=== PATIENT | female | born 1960 | race Caucasian/White ===

== ENCOUNTER 2016-07-17 18:41 | Inpatient (IN) ==
[2016-07-17 20:24] LABS: Hematocrit 39.9 % (35.3-44.9); Hemoglobin 13.2 g/dL (11.5-15.4); Mean Corpuscular HGB Conc 33.1 g/dL (31.6-35.5); Mean Corpuscular Hemoglobin 30.1 pg (28.0-33.3); Mean Corpuscular Volume 91.1 fL (83.0-100.0); Mean Platelet Volume 9.8 fL (9.4-12.4); Platelet Count 339 K/mcL (140-400); Red Blood Count 4.38 M/mcL (3.82-4.97); Red Cell Distribution Width 12.8 % (11.5-14.5)
[2016-07-17] MEDS ORDERED: *HR* HYDROmorphone (PF) 1 MG/ML SYRINGE IVP ONE (20:32)
[2016-07-17 20:33] LABS: Alanine Aminotransferase 47 Units/L (0-55); Alkaline Phosphatase 93 Units/L (38-126); Aspartate Amino Transferase 33 Units/L (5-34); BUN/Creatinine Ratio 15 (6-26); Bilirubin,Total 0.4 mg/dL (0.2-1.2); Blood Urea Nitrogen 13 mg/dL (7-20); Calcium 9.5 mg/dL (8.6-10.8); Carbon Dioxide 24 mEq/L (19-29); Chloride 107 mEq/L (98-109); Glucose 110 mg/dL (70-99); Osmolality,Calculated 293 (280-300); Potassium 3.5 mEq/L (3.5-4.5); Sodium 141 mEq/L (136-145); eGFR For African Americans > 60 (> 60); eGFR For Non-African Americans > 60 (> 60)
[2016-07-17] MEDS ORDERED: Ondansetron 4 MG/2 ML VIAL IVP ONE (20:33)
[2016-07-17] MEDS ORDERED: 0.9 % Sodium Chloride 1,000 ML ONE (20:36)
[2016-07-17 20:43] LABS: Lymphocytes # 2.1 K/mcL (0.6-4.6); Monocytes # 1.6 K/mcL (0.0-1.3); Neutrophils # 22.5 K/mcL (1.6-8.9); Platelet Estimate Normal (Normal)
[2016-07-17] MEDS ORDERED: 0.9 % Sodium Chloride 1,000 ML IV ONE (20:44)
[2016-07-17 20:49] LABS: Bilirubin,Urine Negative (Negative); Blood,Urine Negative (Negative); Clarity,Urine Clear (Clear); Color,Urine Yellow (Yellow); Glucose,Urine (UA) Normal (Normal); Ketones,Urine Negative (Negative); Leukocyte Esterase,Urine Negative (Negative); Nitrite,Urine Negative (Negative); Protein,Urine Negative (Neg-Trace); Specific Gravity,Urine 1.017 (1.010-1.025); Urobilinogen,Urine Normal (Normal)
--- NOTE | 2016-07-17 21:50 | Emergency Department Note ---
Disposition Clinical Impression: Diverticulitis Qualifiers: Diverticulitis site: small intestine Diverticulitis bleeding: without bleeding Diverticulitis complication: without perforation or abscess Qualified Code(s): K57.12 - Diverticulitis of small intestine without perforation or abscess without bleeding Disposition: Admitted As Inpatient Condition: Good Referrals: Brenda Rosado HI LIFT OPERATOR [Primary Care Provider] - Forms: Work/School Release, ED Satisfaction Letter Abdominal Pain HPI - General Chief Complaint: ED Abdominal Pain Stated Complaint: abd pain, vomiting Time Seen by Provider: 07/17/16 19:42 Source: patient, family Nursing Notes Reviewed: Yes Vital Signs Reviewed: Yes - History of Present Illness HPI Narrative: Patient comes in complaint of right lower quadrant abdominal pain that started about 3 hours prior to presentation. Patient describes the pain is sudden with no prior history of similar symptoms. Patient states that movement is made the pain worse but wrists does make it better. Patient denies fevers or chills denies numbness and tingling. Patient has had some nausea no vomiting. Patient denies bladder dysfunction associated with this. Patient states she had a gallbladder performed years ago by Dr. henson. Pain Scale: 10 - Related Data Allergies Allergy/AdvReac Type Severity Reaction Status Date / Time Erythromycin Base Allergy Hives Verified 07/17/16 20:02 Tetracyclines Allergy Hives Verified 07/17/16 20:02 All systems ED: reviewed and negative except as stated. Abdominal Pain PMH - Past Medical History Medical history: Reports: asthma Female Surgical History: Reports: cholecystectomy Psychiatric history: Reports: no psych history - Social History Smoking status: Former smoker Alcohol use: Reports: none Drug use: Reports: none Physical Exam - General Limitations: no limitations General appearance: alert, in no apparent distress - Head Head exam: atraumatic, normocephalic, normal inspection - Eye Eye exam: Present: normal appearance, PERRL, EOMI - ENT ENT exam: normal exam, normal oropharynx, mucous membranes moist - Neck Neck exam: Present: normal inspection, full ROM, trachea midline - Chest Chest inspection: Present: normal inspection, symmetric chest wall rise - Respiratory Respiratory exam: Present: normal lung sounds bilaterally - Cardiovascular Cardiovascular exam: Present: regular rate, normal rhythm, normal heart sounds - Abdominal Exam Abdominal exam: Present: soft, tenderness. Absent: guarding, rebound Abdominal tenderness: Present: RLQ - Extremities Exam Extremities exam: Present: normal inspection, full ROM. Absent: tenderness, pedal edema - Back Exam Back exam: Present: normal inspection, full ROM. Absent: tenderness - Neurological Exam Neurological exam: Present: alert, oriented X3 - Psychiatric Psychiatric exam: Present: normal affect, normal mood - Skin Skin exam: Present: warm, dry, intact, normal color Course Vital Signs Temperature 97.8 F 07/17/16 18:44 Pulse Rate 71 07/17/16 18:44 Respiratory Rate 18 07/17/16 18:44 Blood Pressure 143/86 07/17/16 18:44 O2 Sat by Pulse Oximetry 98 07/17/16 18:44 Temperature 97.8 F 07/17/16 18:44 Pulse Rate 71 07/17/16 18:44 Respiratory Rate 18 07/17/16 18:44 Blood Pressure 143/86 07/17/16 18:44 O2 Sat by Pulse Oximetry 98 07/17/16 18:44 Oxygen Delivery Oxygen Delivery Room Air Abdominal Pain - Differential Diagnosis Differential Diagnosis: Likely: abdominal pain non-specific, acute appendicitis , diverticulitis, gastroenteritis, ischemic bowel, pancreatitis - Lab Data Lab results reviewed: Yes I reviewed the patient's lab results. Result diagrams: 07/17/16 20:12 07/17/16 20:12 Lab Results 07/17/16 07/17/16 07/17/16 Range/Units 20:09 20:12 20:12 WBC 26.8 H (4.3-11.1) K/mcL RBC 4.38 (3.82-4.97) M/mcL Hgb 13.2 (11.5-15.4) g/dL Hct 39.9 (35.3-44.9) % MCV 91.1 (83.0-100.0) fL MCH 30.1 (28.0-33.3) pg MCHC 33.1 (31.6-35.5) g/dL RDW 12.8 (11.5-14.5) % Plt Count 339 (140-400) K/mcL MPV 9.8 (9.4-12.4) fL Seg Neutrophils % 32.0 % Band Neutrophils % 52.0 H (0-4) % Lymphocytes % 8.0 % Monocytes % 6.0 % Metamyelocytes % 2.0 H (0) % Neutrophils # 22.5 H (1.6-8.9) K/mcL Lymphocytes # 2.1 (0.6-4.6) K/mcL Monocytes # 1.6 H (0.0-1.3) K/mcL Platelet Estimate Normal (Normal) Sodium 141 (136-145) mEq/L Potassium 3.5 (3.5-4.5) mEq/L Chloride 107 (98-109) mEq/L Carbon Dioxide 24 (19-29) mEq/L BUN 13 (7-20) mg/dL Creatinine 0.84 (0.57-1.11) mg/dL Est GFR ( Amer) > 60 (> 60) Est GFR (Non-Af Amer) > 60 (> 60) BUN/Creatinine Ratio 15 (6-26) Glucose 110 H (70-99) mg/dL Calculated Osmolality 293 (280-300) Lactic Acid (0.5-2.2) mmol/L Calcium 9.5 (8.6-10.8) mg/dL Total Bilirubin 0.4 (0.2-1.2) mg/dL AST 33 (5-34) Units/L ALT 47 (0-55) Units/L Alkaline Phosphatase 93 (38-126) Units/L Serum Total Protein 8.0 (6.0-8.3) g/dL Albumin 4.0 (3.5-5.0) g/dL Globulin 4.0 H (2.4-3.5) g/dL Albumin/Globulin Ratio 1.0 L (1.1-2.2) Urine Color Yellow (Yellow) Urine Clarity Clear (Clear) Urine pH 6.0 (5.0-8.0) pH Units Ur Specific [place] 1.017 (1.010-1.025) Urine Protein Negative (Neg-Trace) mg/dL Urine Glucose (UA) Normal (Normal) mg/dL Urine Ketones Negative (Negative) mg/dL Urine Blood Negative (Negative) Urine Nitrite Negative (Negative) Urine Bilirubin Negative (Negative) Urine Urobilinogen Normal (Normal) mg/dL Ur Leukocyte Esterase Negative (Negative) Ur Culture Indicated? NO (NO) 07/17/16 Range/Units 20:12 WBC (4.3-11.1) K/mcL RBC (3.82-4.97) M/mcL Hgb (11.5-15.4) g/dL Hct (35.3-44.9) % MCV (83.0-100.0) fL MCH (28.0-33.3) pg MCHC (31.6-35.5) g/dL RDW (11.5-14.5) % Plt Count (140-400) K/mcL MPV (9.4-12.4) fL Seg Neutrophils % % Band Neutrophils % (0-4) % Lymphocytes % % Monocytes % % Metamyelocytes % (0) % Neutrophils # (1.6-8.9) K/mcL Lymphocytes # (0.6-4.6) K/mcL Monocytes # (0.0-1.3) K/mcL Platelet Estimate (Normal) Sodium (136-145) mEq/L Potassium (3.5-4.5) mEq/L Chloride (98-109) mEq/L Carbon Dioxide (19-29) mEq/L BUN (7-20) mg/dL Creatinine (0.57-1.11) mg/dL Est GFR ( Amer) (> 60) Est GFR (Non-Af Amer) (> 60) BUN/Creatinine Ratio (6-26) Glucose (70-99) mg/dL Calculated Osmolality (280-300) Lactic Acid 1.0 (0.5-2.2) mmol/L Calcium (8.6-10.8) mg/dL Total Bilirubin (0.2-1.2) mg/dL AST (5-34) Units/L ALT (0-55) Units/L Alkaline Phosphatase (38-126) Units/L Serum Total Protein (6.0-8.3) g/dL Albumin (3.5-5.0) g/dL Globulin (2.4-3.5) g/dL Albumin/Globulin Ratio (1.1-2.2) Urine Color (Yellow) Urine Clarity (Clear) Urine pH (5.0-8.0) pH Units Ur Specific [place] (1.010-1.025) Urine Protein (Neg-Trace) mg/dL Urine Glucose (UA) (Normal) mg/dL Urine Ketones (Negative) mg/dL Urine Blood (Negative) Urine Nitrite (Negative) Urine Bilirubin (Negative) Urine Urobilinogen (Normal) mg/dL Ur Leukocyte Esterase (Negative) Ur Culture Indicated? (NO) - Radiology Data Radiology results reviewed: Yes I reviewed the patient's radiology results. Abdomen/Pelvis CT 07/17/16 20:02 IMPRESSION: 1. Mild colonic diverticulosis with uncomplicated acute diverticulitis involving proximal sigmoid colon. 2. Trace free fluid in the pelvis is likely reactive. D/ / Jason Kirkland MD / Jason Kirkland MD Interpreting Provider: Jason Kirkland MD Critical Care Time Total Critical Care Time: 45 Attestation: Critical care performed: Time is exclusive of separately billable procedures. Time includes: direct patient care, patient reassessment, coordination of patient care, interpretation of data (laboratory data, radiology data, and respiratory data), review of patient's medical records, medical consultation and documentation of patient care. Procedures included in critical care time: Procedures excluded from critical care time:
[2016-07-17] MEDS ORDERED: MetroNIDAZOLE 500 MG/100 ML 500 MG/100 ML BAG IVPB ONE (22:06)
[2016-07-17] MEDS ORDERED: Naloxone 0.4 MG/ML INJ IVP PRN (23:57)
[2016-07-18] MEDS ORDERED: *HR* HYDROmorphone (PF) 1 MG/ML SYRINGE IVP PRN (00:01)
[2016-07-18] MEDS ORDERED: *HR* HYDROmorphone (PF) 1 MG/ML SYRINGE IVP ONE (00:01)
[2016-07-18] MEDS ORDERED: *HR* Morphine 2 MG/ML SYRINGE IVP PRN (00:01)
--- NOTE | 2016-07-18 00:04 | Internal Med History&Physical ---
Date of Encounter: 07/17/16 Time of Encounter: 23:30 Assessment and Plan (1) Sigmoid diverticulitis Current visit: Yes Status: Acute CT scan of the abdomen and pelvis showing acute diverticulitis involving the proximal sigmoid colon. Please keep her nothing by mouth. Treat with ertapenem (due to severe leucocytosis). Monitor for complications, and consider surgical consultation, if any concern for complications. (2) Leucocytosis Current visit: Yes Status: Acute Secondary to acute diverticulitis. Monitor WBC count Qualifiers: Leukocytosis type: bandemia Qualified Code(s): D72.825 - Bandemia (3) DVT prophylaxis Current visit: Yes Status: Acute Subcutis heparin Internal Medicine - H&P: HPI Chief complaint: Abdominal pain Admitted From: Emergency Dept Plans for Post Hospital Care: Home History of present illness: Ms. Crenshaw is a 56 year old female prior history of cholecystectomy about 10 years ago. The interventricular emergency department visit sudden onset of right lower quadrant/suprapubic abdominal pain started at about 4 PM today. Pain was severe, worse with movement, had some relief with Pain medications given in the emergency department, nonradiating. No associated nausea, vomiting , fever, chills. She had no similar episodes in the past. He had bowel movement earlier today, with no hematochezia/melena. She denies constipation or diarrhea. Denies dysuria or hematuria. She denies chest pain, shortness of breath, cough or expectoration. She was evaluated in the emergency department and abdominal imaging suggestive of uncomplicated proximal sigmoid diverticulitis and leukocytosis. He was given intravenous ciprofloxacin and metronidazole. She is admitted to the hospitalist service for further workup and management. Past Med Surg Social Fam HX - Past Medical History Medical history: asthma Psychiatric history: no psych history - Past Surgical History Surgical History: cholecystectomy - Social History Smoking Status: Former smoker Packs per day: 1.5 Smokeless Tobacco Status: No Alcohol use: none Drug use: none Internal Medicine - H&P: Meds Allergies Erythromycin Base Allergy (Verified 07/17/16 20:02) Hives Tetracyclines Allergy (Verified 07/17/16 20:02) Hives All Systems PM: A 10-system review of systems was performed and is negative for pertinent findings except as documented above in the HPI. - Constitutional Vitals: Temp Pulse Resp BP Pulse Ox 97.8 F 71 18 143/86 98 07/17/16 18:44 07/17/16 18:44 07/17/16 18:44 07/17/16 18:44 07/17/16 18:44 Exam: General: Mild acute distress at the time of my evaluation HEENT: Oral mucosa is dry. No conjunctival palor or scleral icterus Neck: No obvious neck swellings Lungs: Clear to auscultation Cardiac: Regular rate and rhythm. No significant murmurs Abdomen: Mild right lower quadrant / suprapubic tenderness present. Bowel sounds present Genitourinary: No gutierrez catheter Neurological: Alert and oriented. No gross localizing deficits Psych: Not aggressive or agitated Extremities: no significant leg edema Skin: No generalized rash Internal Med - H&P Results - Labs CBC & Chem 7: 07/17/16 20:12 07/17/16 20:12 - Impressions ITS Impressions Abdomen/Pelvis CT 07/17/16 20:02 IMPRESSION: 1. Mild colonic diverticulosis with uncomplicated acute diverticulitis involving proximal sigmoid colon. 2. Trace free fluid in the pelvis is likely reactive. D/ / Jason Kirkland MD / Jason Kirkland MD Interpreting Provider: Jason Kirkland MD
[2016-07-18] MEDS: 0.9 % Sodium Chloride 1,000 ML IVC SCH ×3 (00:28→21:40)
[2016-07-18] MEDS: Ertapenem 1,000 MG in 0.9 % Sodium Chloride Mini Bag 100 ML IVPB SCH (05:34)
[2016-07-18 05:47] LABS: Basophils % 0.1 %; Hematocrit 35.8 % (35.3-44.9); Immature Granulocytes % 0.6 % (0-4); Lymphocytes # 1.4 K/mcL (0.6-4.6); Lymphocytes % 6.4 %; Mean Corpuscular HGB Conc 32.4 g/dL (31.6-35.5); Mean Corpuscular Hemoglobin 29.1 pg (28.0-33.3); Mean Corpuscular Volume 89.7 fL (83.0-100.0); Mean Platelet Volume 9.6 fL (9.4-12.4); Monocytes # 0.9 K/mcL (0.0-1.3); Neutrophils # 18.8 K/mcL (1.6-8.9); Platelet Count 273 K/mcL (140-400); Red Blood Count 3.99 M/mcL (3.82-4.97); Red Cell Distribution Width 12.9 % (11.5-14.5); Segmented Neutrophils % 88.9 %
[2016-07-18 05:50] LABS: Hemoglobin 11.6 g/dL (11.5-15.4)
[2016-07-18 06:02] LABS: BUN/Creatinine Ratio 14 (6-26); Blood Urea Nitrogen 11 mg/dL (7-20); C-Reactive Protein 35 mg/L (Less than 5); Calcium 8.9 mg/dL (8.6-10.8); Carbon Dioxide 24 mEq/L (19-29); Chloride 108 mEq/L (98-109); Glucose 118 mg/dL (70-99); Magnesium 1.9 mg/dL (1.6-2.6); Osmolality,Calculated 290 (280-300); Potassium 3.9 mEq/L (3.5-4.5); Sodium 140 mEq/L (136-145); eGFR For African Americans > 60 (> 60); eGFR For Non-African Americans > 60 (> 60)
[2016-07-18] MEDS: *HR* Heparin 5,000 UNIT/ML VIAL SQ SCH ×3 (06:52→23:48)
[2016-07-18] MEDS ORDERED: MetroNIDAZOLE 500 MG/100 ML 500 MG/100 ML BAG IVPB SCH (08:00)
[2016-07-18] MEDS: Lactobacillus 1 EACH CAP.SPRINK PO SCH (09:10)
[2016-07-18] MEDS: Ondansetron 4 MG/2 ML VIAL IVP PRN (10:07)
[2016-07-18] MEDS: *HR* OxyCODONE Immed Rel 5 MG TABLET PO PRN (12:26)
--- NOTE | 2016-07-18 15:24 | Electrocardiograph Report ---
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
[2016-07-18] MEDS: *HR* HYDROmorphone (PF) 1 MG/ML SYRINGE IVP PRN ×2 (16:49→23:48)
[2016-07-18] MEDS: Acetaminophen 325 MG TABLET PO PRN (19:36)
--- NOTE | 2016-07-18 20:01 | Event Note ---
Date of Encounter: 07/18/16 Time of Encounter: 08:30 patinet seen at the bedside, admitted for acute sigmoid diverticulitis. still complaining of abdominal pain, denies nausea or vomiting denies guy or blood in stool Ct abd showed sigmmoid diverticulitis, no evidence of abscess. will start ice chips , increase pain meds as pain is not well controlled keep IVF for now, gradually advance diet as tolerated. will continue IV antibiotics, currently on ertapenem. monitor for worsening abdominal pain. abdominal exam has no rebound tenderness but is diffusely tender.
[2016-07-19] MEDS: *HR* OxyCODONE Immed Rel 5 MG TABLET PO PRN ×3 (04:18→22:05)
[2016-07-19 05:24] LABS: Basophils % 0.1 %; Eosinophils % 0.1 %; Hematocrit 32.7 % (35.3-44.9); Hemoglobin 10.6 g/dL (11.5-15.4); Immature Granulocytes % 0.8 % (0-4); Lymphocytes # 1.4 K/mcL (0.6-4.6); Lymphocytes % 6.9 %; Mean Corpuscular HGB Conc 32.4 g/dL (31.6-35.5); Mean Corpuscular Hemoglobin 29.9 pg (28.0-33.3); Mean Corpuscular Volume 92.1 fL (83.0-100.0); Monocytes # 0.8 K/mcL (0.0-1.3); Monocytes % 4.2 %; Neutrophils # 17.5 K/mcL (1.6-8.9); Platelet Count 214 K/mcL (140-400); Red Blood Count 3.55 M/mcL (3.82-4.97); Red Cell Distribution Width 12.9 % (11.5-14.5); Segmented Neutrophils % 87.9 %
[2016-07-19 05:39] LABS: BUN/Creatinine Ratio 20 (6-26); Blood Urea Nitrogen 14 mg/dL (7-20); Calcium 8.6 mg/dL (8.6-10.8); Carbon Dioxide 23 mEq/L (19-29); Chloride 108 mEq/L (98-109); Glucose 100 mg/dL (70-99); Osmolality,Calculated 287 (280-300); Potassium 3.9 mEq/L (3.5-4.5); Sodium 138 mEq/L (136-145); eGFR For African Americans > 60 (> 60); eGFR For Non-African Americans > 60 (> 60)
[2016-07-19] MEDS: *HR* Heparin 5,000 UNIT/ML VIAL SQ SCH ×3 (07:38→22:05)
[2016-07-19] MEDS: 0.9 % Sodium Chloride 1,000 ML IVC SCH ×2 (07:39→18:51)
[2016-07-19] MEDS: Lactobacillus 1 EACH CAP.SPRINK PO SCH (09:19)
[2016-07-19] MEDS: Ertapenem 1,000 MG in 0.9 % Sodium Chloride Mini Bag 100 ML IVPB SCH (09:20)
[2016-07-19] MEDS: Ondansetron 4 MG/2 ML VIAL IVP PRN ×2 (10:31→22:38)
--- NOTE | 2016-07-19 14:14 | Internal Med Progress Note ---
Date of Encounter: 07/19/16 Time of Encounter: 14:12 - Assessment and plan (1) Sigmoid diverticulitis Current Visit: Yes Status: Acute Assessment and plan: continue IV ertapenem, CT abd showed sigmoid diverticulitis, no evidence of abscess follow blood culture results. clinically better, pain has subsided, leucocytosis has improved, will gradually advance diet. will need colonosocpy as OP once the inflammation has resolved. (2) DVT prophylaxis Current Visit: Yes Status: Acute - Time Spent With Patient 25 - 35 minutes - Subjective Interval history: patinet admitted for acute diverticulitis, seen at the bedside reports improvement in pain, s/p bowel movement with no blood. vomited once in the morning, diet was advanced to clear liquids today. - Constitutional Vitals: Temp Pulse Resp BP Pulse Ox 99 F 92 16 118/71 93 L 07/19/16 11:31 07/19/16 11:31 07/19/16 11:31 07/19/16 11:31 07/19/16 11:31 General appearance: Present: mild distress, A&O X 3 Exam: HEENT: Oral mucosa is dry. No conjunctival palor or scleral icterus Neck: No obvious neck swellings Lungs: Clear to auscultation Cardiac: Regular rate and rhythm. No significant murmurs Abdomen: Mild right lower quadrant present. Bowel sounds present Genitourinary: No gutierrez catheter Neurological: Alert and oriented. No gross localizing deficits Psych: Not aggressive or agitated Extremities: no significant leg edema Skin: No generalized rash Internal Medicine: Result - Labs CBC & Chem 7: 07/19/16 04:54 07/19/16 04:54 Labs: Short CBC 07/19/16 Range/Units 04:54 WBC 19.9 H (4.3-11.1) K/mcL Hgb 10.6 L (11.5-15.4) g/dL Hct 32.7 L (35.3-44.9) % Plt Count 214 (140-400) K/mcL Neutrophils # 17.5 H (1.6-8.9) K/mcL BMP 07/19/16 04:54 Sodium 138 Potassium 3.9 Chloride 108 Carbon Dioxide 23 BUN 14 Creatinine 0.69 Glucose 100 H Calcium 8.6 Consult Discharge Plan - Plan Referrals: Brenda Rosado, MARKETING ADMINISTRATOR [Primary Care Provider] -
[2016-07-19] MEDS: *HR* HYDROmorphone (PF) 1 MG/ML SYRINGE IVP PRN (15:10)
[2016-07-19] MEDS: Acetaminophen 325 MG TABLET PO PRN (16:05)
[2016-07-20] MEDS: Ondansetron 4 MG/2 ML VIAL IVP PRN ×4 (03:13→22:59)
[2016-07-20] MEDS: *HR* HYDROmorphone (PF) 1 MG/ML SYRINGE IVP PRN ×2 (03:13→08:36)
[2016-07-20] MEDS: *HR* Heparin 5,000 UNIT/ML VIAL SQ SCH ×3 (06:31→19:16)
[2016-07-20] MEDS: *HR* OxyCODONE Immed Rel 5 MG TABLET PO PRN ×2 (06:35→15:36)
[2016-07-20] MEDS: 0.9 % Sodium Chloride 1,000 ML IVC SCH ×3 (07:47→23:06)
[2016-07-20] MEDS: Lactobacillus 1 EACH CAP.SPRINK PO SCH (08:37)
[2016-07-20] MEDS: Ertapenem 1,000 MG in 0.9 % Sodium Chloride Mini Bag 100 ML IVPB SCH (08:46)
[2016-07-20] MEDS ORDERED: *HR* Promethazine 25 MG/ML VIAL IVP PRN ×2 (10:51→16:10)
[2016-07-20 11:35] LABS: Basophils % 0.1 %; Eosinophils % 0.2 %; Hematocrit 31.4 % (35.3-44.9); Hemoglobin 10.3 g/dL (11.5-15.4); Lymphocytes # 1.1 K/mcL (0.6-4.6); Lymphocytes % 7.7 %; Mean Corpuscular HGB Conc 32.8 g/dL (31.6-35.5); Mean Corpuscular Hemoglobin 29.3 pg (28.0-33.3); Mean Corpuscular Volume 89.5 fL (83.0-100.0); Mean Platelet Volume 9.5 fL (9.4-12.4); Monocytes # 0.7 K/mcL (0.0-1.3); Monocytes % 4.5 %; Neutrophils # 12.6 K/mcL (1.6-8.9); Platelet Count 214 K/mcL (140-400); Red Blood Count 3.51 M/mcL (3.82-4.97); Red Cell Distribution Width 12.7 % (11.5-14.5); Segmented Neutrophils % 86.5 %
[2016-07-20 11:50] LABS: Alanine Aminotransferase 35 Units/L (0-55); Albumin/Globulin Ratio 0.6 (1.1-2.2); Alkaline Phosphatase 82 Units/L (38-126); Aspartate Amino Transferase 32 Units/L (5-34); BUN/Creatinine Ratio 17 (6-26); Blood Urea Nitrogen 10 mg/dL (7-20); Calcium 8.2 mg/dL (8.6-10.8); Carbon Dioxide 23 mEq/L (19-29); Chloride 107 mEq/L (98-109); Globulin 3.9 g/dL (2.4-3.5); Glucose 103 mg/dL (70-99); Osmolality,Calculated 285 (280-300); Potassium 3.4 mEq/L (3.5-4.5); Sodium 138 mEq/L (136-145); Total Protein 6.4 g/dL (6.0-8.3); eGFR For African Americans > 60 (> 60); eGFR For Non-African Americans > 60 (> 60)
[2016-07-20 11:51] LABS: Albumin 2.5 g/dL (3.5-5.0); Bilirubin,Total 0.8 mg/dL (0.2-1.2)
[2016-07-20 13:38] LABS: INR 1.2; Prothrombin Time 13.2 Seconds (9.4-12.1)
--- NOTE | 2016-07-20 15:40 | Internal Med Progress Note ---
Date of Encounter: 07/20/16 Time of Encounter: 15:36 - Assessment and plan (1) Sigmoid diverticulitis Current Visit: Yes Status: Acute Assessment and plan: repeat ct this morning for persistent vomiting. NPO, IVF, consulted surgery. CT shows perforation and ascitis. continue IV ertapenem, IV zofran and phenergan follow blood culture results, leucocytosis seems to have improved. will follow surgical recommendations. (2) DVT prophylaxis Current Visit: Yes Status: Acute - Time Spent With Patient 25 - 35 minutes - Subjective Interval history: isabela admitted for acute diverticulitis, seen at the bedside noted to be vomiting this morning, had nothing to eat. reports she feels miserable. - Constitutional Vitals: Temp Pulse Resp BP Pulse Ox 99.7 F H 86 16 128/76 96 07/20/16 15:17 07/20/16 15:17 07/20/16 15:17 07/20/16 15:17 07/20/16 15:17 General appearance: Present: mild distress, A&O X 3 Exam: Neck: No obvious neck swellings Lungs: Clear to auscultation Cardiac: Regular rate and rhythm. No significant murmurs Abdomen:feels soft, tenderness lower abdomen , bs are present, Genitourinary: No gutierrez catheter Neurological: Alert and oriented. No gross localizing deficits Psych: Not aggressive or agitated Extremities: no significant leg edema Skin: No generalized rash Internal Medicine: Result - Labs CBC & Chem 7: 07/20/16 11:13 07/20/16 11:13 Labs: Short CBC 07/20/16 Range/Units 11:13 WBC 14.6 H (4.3-11.1) K/mcL Hgb 10.3 L (11.5-15.4) g/dL Hct 31.4 L (35.3-44.9) % Plt Count 214 (140-400) K/mcL Neutrophils # 12.6 H (1.6-8.9) K/mcL BMP 07/20/16 11:13 Sodium 138 Potassium 3.4 L Chloride 107 Carbon Dioxide 23 BUN 10 Creatinine 0.58 Glucose 103 H Calcium 8.2 L Liver Function 07/20/16 Range/Units 11:13 Total Bilirubin 0.8 D (0.2-1.2) mg/dL AST 32 (5-34) Units/L ALT 35 (0-55) Units/L Alkaline Phosphatase 82 (38-126) Units/L Albumin 2.5 L D (3.5-5.0) g/dL - ABG Interpretation ABG results: PT/INR, D-dimer PT 13.2 Seconds (9.4-12.1) H 07/20/16 13:23 - Impressions Impressions Abdomen/Pelvis CT 07/20/16 11:01 IMPRESSION: 1. Interval progression of acute sigmoid diverticulitis now with perforation with new small volume ascites and a 4.8 x 3.1 cm pericolonic gas and fluid collection. 2. There is a 3.3 cm pocket of fluid in the right pelvis which could represent a second fluid collection versus a fluid-filled bowel loop. 3. Hepatic steatosis. 4. Mild dilation of the common bile duct likely related to post cholecystectomy changes. 5. Although the bladder is decompressed, there is apparent bladder wall thickening and perivesicular stranding which could be reactive due to adjacent inflammatory changes within the sigmoid colon. Cystitis is not excluded. Critical results were called by Dr. Janiya Yanez MD to Bhupendra Tierney on 07/20/2016 at 12:17. D/ / 07/20/2016 12:22:59 Janiya Yanez MD / kaylee Interpreting Provider: Janiya Yanez MD Consult Discharge Plan - Plan Referrals: Brenda Rosado, TRIAGE LICENSED PRACTICAL NURSE [Primary Care Provider] - 07/29/16 10:40 am
[2016-07-20] MEDS: Acetaminophen 325 MG TABLET PO PRN (16:10)
[2016-07-20] MEDS ORDERED: Potassium Chloride 20 MEQ, Lidocaine 1% 2 ML in D5% in Water 250 ML IVPB ONE (16:13)
[2016-07-20] MEDS: Piperacillin/Tazobactam 3.375 GM in D5% in Water (Mini-Bag+) 100 ML IVPB SCH ×2 (16:28→23:07)
--- NOTE | 2016-07-20 16:50 | General Surgery Consult Note ---
Date of Encounter: 07/20/16 Time of Encounter: 16:00 History of Present Illness Reason for consult: abdominal pain (Acute diverticulitis with perforation) Requesting physician: Bhupendra Tierney History of present illness: 56-year-old obese female admitted to [facility], 07/17/16, after presenting to urgency department with sudden onset right-sided abdominal pain. On presentation the patient complained of acute pain but no associated nausea, vomiting, fevers or chills. Patient had a markedly elevated white count , 26.8, other labs and urinalysis were within normal limits. CT findings included: A few linear opacities near both lung bases representing scarring or subsegmental atelectasis; evidence of previous cholecystectomy; 2.9 cm simple appearing cyst interpolar region right kidney; normal liver, spleen, adrenals and left kidney; normal-appearing appendix; tiny fat-containing umbilical hernia ; colonic diverticulosis with acute sigmoid diverticulitis company by a few foci of extraluminal gas present. The interpreting radiologist felt that these extra luminal gas bubbles were likely within the mesenteric veins rather than intraperitoneal. The possibility of a microperforation due to the acute sigmoid diverticulitis was considered. Patient was admitted, started on IV ertapenem with moderate improvement over overnight. EP white count improved to 21.9, 07/18/16 and subsequently 19.9 on 07/19/16. Clear liquids were allowed minimal intake resulting in severe, recurrent emesis. Today, the patient was complaining of persistent Right side abdominal pain prompting a repeat CT. This showed interval progression of the acute sigmoid diverticulitis with perforation evidenced by extracolonic gas and fluid. Both CTs were reviewed personally with [facility]. The initial findings of mesenteric venous air was not corroborated. In retrospect, the exta luminal air was due to sigmoid diverticulitis with perforation. Past medical history: Mitral valve prolapse without regurgitation, asthma Allergies: Erythromycin, tetracycline Medications: Topamax when necessary for migraines Zyrtec [id number] when necessary for allergies Multivitamin by mouth daily Social history: G3, P2; denies any alcohol or illicit drug use; quit smoking 6 weeks ago admitting to 1-1/2 packs per day for 30+ years Physical examination: Obese, age-appropriate female resting comfortably in her hospital bed. During my encounter with the patient, she experienced an episode of "dry heaves " Skin was warm, moist without obvious jaundice Temperature 99.7; pulse 86, respirations 16, blood pressure 128/76, SPO2 on room air 93-96% Lungs: Clear bilaterally though breath sounds were diminished in both bases Cardiac: Regular rate, no appreciable murmurs. Was not able to detect a click consistent with mitral valve prolapse Abdomen: Obese, tenderness most pronounced in the right lower quadrant but also tender in the left lower quadrant. No discernible masses. Hypoactive bowel sounds Extremities: No obvious clubbing cyanosis or edema Laboratories: White count today 14.6; hemoglobin 10.3, hematocrit 31.4; platelet count 214,000. PT/INR 13.2/1.2 respectively Electrolytes - potassium 3.4; otherwise normal electrolytes, BUN, creatinine LFTs - normal bili, AST, ALT and alkaline phosphatase Impression: 56 yo obese female with acute sigmoid divertilculitis with perforation. The perforation appears contained at present. Treatment options include urgent surgery - sigmoid colectomy with high probability of end colostomy as an anastomosis in the presence of acute inflammation/infection is likely to fail. Alternatively, we can continue to treat aggressively with ATB, changing the Ertepenem to Zosyn and metronidazole and monitor the patient closely for signs and symptoms of improvement. If the acute inflammation is controlled medically, a primary resection with anastomosis may become possible in several days. The patient expressed understanding and is willing to defer surgery and trial of medical management. I will follow this patient with you. To achieve these ends the patient will be strictly NPO; pain medications will be decreased in dosage but offered more frequently. Anti emetics, both Zofran and phenergan, will be available for control of nausea and/ or vomiting. The patient's hypokalemia will be addressed with IV potassium. The possibility of prolonged NPO status may necessitate establishing a central line and initiation TPN. Past Med Surg Social Fam HX - Past Medical History Medical history: asthma Psychiatric history: no psych history - Past Surgical History Surgical History: cholecystectomy - Social History Smoking Status: Former smoker Packs per day: 1.5 Smokeless Tobacco Status: No Alcohol use: none Drug use: none Medications and Allergies Cetirizine HCl [Zyrtec] 10 mg PO DAILY 07/18/16 [History] Gabapentin [Neurontin] 300 mg PO HS 07/18/16 [History] Mv-Mn/FA/Vit K/Lycop/Lut/Coq10 [Daily Multivitamin Capsule] 1 each PO DAILY [History] Ranitidine HCl [Acid Refrigerating Machine Operator] 75 mg PO DAILY 07/18/16 [History] Topiramate [Topiramate] 50 mg PO HS 07/18/16 [History] Allergies Erythromycin Base Allergy (Verified 07/18/16 10:08) Hives Tetracyclines Allergy (Verified 07/18/16 10:08) Hives Review of Systems All systems PM: A 10-system review of systems was performed and is negative for pertinent findings except as documented above in the HPI. General Surgery Exam Initial Vital Signs Temp Pulse Resp BP Pulse Ox 97.8 F 71 18 143/86 98 07/17/16 18:44 07/17/16 18:44 07/17/16 18:44 07/17/16 18:44 07/17/16 18:44 Exam Initial Vital Signs Temp Pulse Resp BP Pulse Ox 97.8 F 71 18 143/86 98 07/17/16 18:44 07/17/16 18:44 07/17/16 18:44 07/17/16 18:44 07/17/16 18:44 Results - Labs 07/20/16 11:13 07/20/16 11:13 Abnormal lab results WBC 14.6 K/mcL (4.3-11.1) H 07/20/16 11:13 RBC 3.51 M/mcL (3.82-4.97) L 07/20/16 11:13 Hgb 10.3 g/dL (11.5-15.4) L 07/20/16 11:13 Hct 31.4 % (35.3-44.9) L 07/20/16 11:13 Band Neutrophils % 52.0 % (0-4) H 07/17/16 20:12 Metamyelocytes % 2.0 % (0) H 07/17/16 20:12 Neutrophils # 12.6 K/mcL (1.6-8.9) H 07/20/16 11:13 PT 13.2 Seconds (9.4-12.1) H 07/20/16 13:23 Potassium 3.4 mEq/L (3.5-4.5) L 07/20/16 11:13 Glucose 103 mg/dL (70-99) H 07/20/16 11:13 POC Glucose 98 (58-89) H 07/19/16 00:13 Calcium 8.2 mg/dL (8.6-10.8) L 07/20/16 11:13 C-Reactive Protein 35 mg/L (Less than 5) H 07/18/16 04:55 Albumin 2.5 g/dL (3.5-5.0) L D 07/20/16 11:13 Globulin 3.9 g/dL (2.4-3.5) H 07/20/16 11:13 Albumin/Globulin Ratio 0.6 (1.1-2.2) L 07/20/16 11:13 Diabetes panel 07/20/16 Range/Units 11:13 Sodium 138 (136-145) mEq/L Potassium 3.4 L (3.5-4.5) mEq/L Chloride 107 (98-109) mEq/L Carbon Dioxide 23 (19-29) mEq/L BUN 10 (7-20) mg/dL Creatinine 0.58 (0.57-1.11) mg/dL Glucose 103 H (70-99) mg/dL Calcium 8.2 L (8.6-10.8) mg/dL AST 32 (5-34) Units/L ALT 35 (0-55) Units/L Alkaline Phosphatase 82 (38-126) Units/L Albumin 2.5 L D (3.5-5.0) g/dL Calcium panel 07/20/16 Range/Units 11:13 Calcium 8.2 L (8.6-10.8) mg/dL Albumin 2.5 L D (3.5-5.0) g/dL Pituitary panel 07/20/16 Range/Units 11:13 Sodium 138 (136-145) mEq/L Potassium 3.4 L (3.5-4.5) mEq/L Chloride 107 (98-109) mEq/L Carbon Dioxide 23 (19-29) mEq/L BUN 10 (7-20) mg/dL Creatinine 0.58 (0.57-1.11) mg/dL Glucose 103 H (70-99) mg/dL Calcium 8.2 L (8.6-10.8) mg/dL Adrenal panel 07/20/16 Range/Units 11:13 Sodium 138 (136-145) mEq/L Potassium 3.4 L (3.5-4.5) mEq/L Chloride 107 (98-109) mEq/L Carbon Dioxide 23 (19-29) mEq/L BUN 10 (7-20) mg/dL Creatinine 0.58 (0.57-1.11) mg/dL Glucose 103 H (70-99) mg/dL Calcium 8.2 L (8.6-10.8) mg/dL Total Bilirubin 0.8 D (0.2-1.2) mg/dL AST 32 (5-34) Units/L ALT 35 (0-55) Units/L Alkaline Phosphatase 82 (38-126) Units/L Albumin 2.5 L D (3.5-5.0) g/dL All other labs normal. Consult Discharge Plan - Plan Referrals: Brenda Rosado CNP [Primary Care Provider] - 07/29/16 10:40 am
[2016-07-20] MEDS: Acetaminophen IV 1,000 MG/100 ML INFUS..BTL IVPB SCH ×2 (18:45→23:15)
[2016-07-20] MEDS: MetroNIDAZOLE 500 MG/100 ML 500 MG/100 ML BAG IVPB SCH ×2 (19:05→23:06)
[2016-07-20] MEDS: Albuterol 2.5 MG/3 ML NEBULIZER IH SCH (22:01)
[2016-07-21] MEDS ORDERED: Albuterol 2.5 MG/3 ML NEBULIZER ONE (04:16)
[2016-07-21] MEDS: Albuterol 2.5 MG/3 ML NEBULIZER IH SCH ×2 (04:17→10:27)
[2016-07-21] MEDS: Acetaminophen IV 1,000 MG/100 ML INFUS..BTL IVPB SCH (04:47)
[2016-07-21] MEDS: Ondansetron 4 MG/2 ML VIAL IVP PRN ×4 (04:54→22:50)
[2016-07-21] MEDS: *HR* HYDROmorphone (PF) 1 MG/ML SYRINGE IVP PRN ×5 (04:54→22:43)
[2016-07-21] MEDS: MetroNIDAZOLE 500 MG/100 ML 500 MG/100 ML BAG IVPB SCH ×4 (05:23→23:06)
[2016-07-21] MEDS: *HR* Heparin 5,000 UNIT/ML VIAL SQ SCH ×3 (05:31→18:57)
[2016-07-21 06:07] LABS: Basophils % 0.2 %; Eosinophils % 0.3 %; Hematocrit 29.6 % (35.3-44.9); Hemoglobin 9.8 g/dL (11.5-15.4); Immature Granulocytes % 0.8 % (0-4); Lymphocytes # 1.1 K/mcL (0.6-4.6); Lymphocytes % 12.2 %; Mean Corpuscular HGB Conc 33.1 g/dL (31.6-35.5); Mean Corpuscular Hemoglobin 29.6 pg (28.0-33.3); Mean Corpuscular Volume 89.4 fL (83.0-100.0); Mean Platelet Volume 9.6 fL (9.4-12.4); Monocytes # 0.5 K/mcL (0.0-1.3); Monocytes % 5.4 %; Neutrophils # 7.6 K/mcL (1.6-8.9); Platelet Count 237 K/mcL (140-400); Red Blood Count 3.31 M/mcL (3.82-4.97); Red Cell Distribution Width 12.7 % (11.5-14.5); Segmented Neutrophils % 81.1 %
[2016-07-21 06:20] LABS: BUN/Creatinine Ratio 13 (6-26); Blood Urea Nitrogen 7 mg/dL (7-20); Calcium 8.4 mg/dL (8.6-10.8); Carbon Dioxide 22 mEq/L (19-29); Chloride 108 mEq/L (98-109); Glucose 102 mg/dL (70-99); Osmolality,Calculated 288 (280-300); Potassium 3.1 mEq/L (3.5-4.5); Sodium 140 mEq/L (136-145); eGFR For African Americans > 60 (> 60); eGFR For Non-African Americans > 60 (> 60)
[2016-07-21] MEDS: Piperacillin/Tazobactam 3.375 GM in D5% in Water (Mini-Bag+) 100 ML IVPB SCH ×3 (09:31→23:07)
[2016-07-21] MEDS: 0.9 % Sodium Chloride 1,000 ML IVC SCH (09:33)
[2016-07-21] MEDS: Potassium Chloride 40 MEQ, Lidocaine 1% 2 ML in D5% in Water 500 ML IVPB SCH ×2 (09:35→15:10)
[2016-07-21] MEDS ORDERED: Acetaminophen IV 1,000 MG/100 ML INFUS..BTL IVPB PRN (10:56)
[2016-07-21] MEDS ORDERED: Albuterol 2.5 MG/3 ML NEBULIZER IH PRN (10:56)
--- NOTE | 2016-07-21 12:02 | General Surgery Progress Note ---
Date of Encounter: 07/21/16 Time of Encounter: 11:47 Subjective Patient reports: still having pain, vomiting Narrative: General Surgery: patient still c/o feeling poorly. Persistent abdominal pain as expected which patient describes as "the same as yesterday" Still vomiting Afebrile, 98.4, pulse 85, respirations 16, blood pressure 136/68. Lungs: Clear Abdomen: Obese, less tender right lower quadrant; persistent tenderness left lower quadrant. Active bowel sounds. Moderate loose bowel movement described in the last 24 hours Urine output 1300 mL for calendar day 07/20/16; 100 mL so far today Laboratories: White count 9.3 - much improved; hemoglobin 9.8, hematocrit 29.6 - the diminished values reflective of hydration Platelet count 237,000. Electrolytes notable for potassium of 3.1; other electrolytes, BUN, creatinine stable. Prealbumin 8 Impression: Acute sigmoid diverticulitis with perforation; improved to my exam though patient still complaining of feeling poorly Leukocytosis associated with acute sigmoid diverticulitis resolved Hypokalemia - due to nausea and vomiting; will continue to supplement via IV potassium Diminished albumin consistent with with protein calorie malnutrition. TPN and central line discussed with patient but will be deferred for now. Discussed with Nutrition/Dietary. Satisfactory response to ATB therapy. Continue to monitor. Objective Vital Signs - Last 8 Hours Temp Pulse Resp BP Pulse Ox 07/21/16 10:56 98.4 F 85 16 136/68 93 L 07/21/16 10:29 18 93 L 07/21/16 07:42 93 L 07/21/16 05:52 98.3 F 81 16 122/68 93 L 07/21/16 04:17 16 93 L Intake and Output 07/20/16 07/21/16 07/21/16 23:59 07:59 15:59 Intake Total 1400 / 1400 400 / 400 1000 / 1000 Output Total 1000 / 1000 300 / 300 500 / 500 Balance 400 / 400 100 / 100 500 / 500 Intake: IV Fluids 1400 / 1400 400 / 400 1000 / 1000 0.9 % Sodium Chloride 1, 1000 / 1000 1000 / 1000 000 ML @ 100 mls/hr IVC . Q10H [facility] Rx#:[id number] Ofirmev 1,000 mg In 100 200 / 200 100 / 100 ml @ 400 mls/hr IVPB Q6H [facility] Rx#:[id number] Flagyl 500 MG/100 ML 500 100 / 100 200 / 200 mg In 100 ml @ 100 mls/hr IVPB Q6H [facility] Rx#: [id number] Zosyn 3.375 GM In 100 / 100 100 / 100 Dextrose 5% (Minibag+) 100 ML 100 ML @ 25 mls/hr IVPB Q8HR [facility] Rx#: [id number] Oral 0 / 0 0 / 0 Output: Urine 1000 / 1000 300 / 300 400 / 400 Emesis 100 / 100 Other: Meal NPO NPO BREAKFAST NPO Percent of Meal Consumed 0% Stool Size Moderate Stool Consistency loose # Bowel Movements 1 Weight 106.821 kg Blood Glucose* 88 101 123 Patient Weight 07/21/16 23:59 Weight 106.821 kg - Labs 07/21/16 05:57 07/21/16 05:57 Diabetes panel 07/20/16 07/21/16 Range/Units 11:13 05:57 Sodium 138 140 (136-145) mEq/L Potassium 3.4 L 3.1 L (3.5-4.5) mEq/L Chloride 107 108 (98-109) mEq/L Carbon Dioxide 23 22 (19-29) mEq/L BUN 10 7 (7-20) mg/dL Creatinine 0.58 0.55 L (0.57-1.11) mg/dL Glucose 103 H 102 H (70-99) mg/dL Calcium 8.2 L 8.4 L (8.6-10.8) mg/dL AST 32 (5-34) Units/L ALT 35 (0-55) Units/L Alkaline Phosphatase 82 (38-126) Units/L Albumin 2.5 L D (3.5-5.0) g/dL Calcium panel 07/20/16 07/21/16 Range/Units 11:13 05:57 Calcium 8.2 L 8.4 L (8.6-10.8) mg/dL Albumin 2.5 L D (3.5-5.0) g/dL Pituitary panel 07/20/16 07/21/16 Range/Units 11:13 05:57 Sodium 138 140 (136-145) mEq/L Potassium 3.4 L 3.1 L (3.5-4.5) mEq/L Chloride 107 108 (98-109) mEq/L Carbon Dioxide 23 22 (19-29) mEq/L BUN 10 7 (7-20) mg/dL Creatinine 0.58 0.55 L (0.57-1.11) mg/dL Glucose 103 H 102 H (70-99) mg/dL Calcium 8.2 L 8.4 L (8.6-10.8) mg/dL Adrenal panel 07/20/16 07/21/16 Range/Units 11:13 05:57 Sodium 138 140 (136-145) mEq/L Potassium 3.4 L 3.1 L (3.5-4.5) mEq/L Chloride 107 108 (98-109) mEq/L Carbon Dioxide 23 22 (19-29) mEq/L BUN 10 7 (7-20) mg/dL Creatinine 0.58 0.55 L (0.57-1.11) mg/dL Glucose 103 H 102 H (70-99) mg/dL Calcium 8.2 L 8.4 L (8.6-10.8) mg/dL Total Bilirubin 0.8 D (0.2-1.2) mg/dL AST 32 (5-34) Units/L ALT 35 (0-55) Units/L Alkaline Phosphatase 82 (38-126) Units/L Albumin 2.5 L D (3.5-5.0) g/dL Consult Discharge Plan - Plan Referrals: Brenda Rosado CNP [Primary Care Provider] - 07/29/16 10:40 am
[2016-07-21] MEDS: D5% in 0.9% NACL 1,000 ML IVC SCH (15:09)
--- NOTE | 2016-07-21 16:28 | Internal Med Progress Note ---
Date of Encounter: 07/21/16 Time of Encounter: 16:22 - Assessment and plan (1) Sigmoid diverticulitis Current Visit: Yes Status: Acute Assessment and plan: repeat ct yesterday showed perforation from sigmoid diverticulitis. NPO, IVF, surgery is following. clinically improved with conservative management. CT shows perforation and ascitis. antibiotics has been changed by surgery, IV zofran and phenergan follow blood culture results, leucocytosis seems to have improved. will follow surgical recommendations. to anticipate TPN and central line placement if to remain NPO for a long time this was discussed with the patient and she does not want the central line at this time. will continue to follow. (2) DVT prophylaxis Current Visit: Yes Status: Acute - Time Spent With Patient 25 - 35 minutes - Subjective Interval history: patinet admitted for acute diverticulitis, seen at the bedside complicated by diverticular perforation. being followed by surgery, appreciate recommendations. - Constitutional Vitals: Temp Pulse Resp BP Pulse Ox 98.4 F 85 18 146/79 97 07/21/16 15:38 07/21/16 15:38 07/21/16 15:38 07/21/16 15:38 07/21/16 15:38 General appearance: Present: A&O X 3, no acute distress Exam: Neck: No obvious neck swellings Lungs: Clear to auscultation Cardiac: Regular rate and rhythm. No significant murmurs Abdomen:feels soft, mild tenderness lower abdomen , bs are present, no rebound Genitourinary: No gutierrez catheter Neurological: Alert and oriented. No gross localizing deficits Psych: Not aggressive or agitated Extremities: no significant leg edema Skin: No generalized rash Internal Medicine: Result - Labs CBC & Chem 7: 07/21/16 05:57 07/21/16 05:57 Labs: Short CBC 07/21/16 Range/Units 05:57 WBC 9.3 (4.3-11.1) K/mcL Hgb 9.8 L (11.5-15.4) g/dL Hct 29.6 L (35.3-44.9) % Plt Count 237 (140-400) K/mcL Neutrophils # 7.6 (1.6-8.9) K/mcL BMP 07/21/16 05:57 Sodium 140 Potassium 3.1 L Chloride 108 Carbon Dioxide 22 BUN 7 Creatinine 0.55 L Glucose 102 H Calcium 8.4 L - ABG Interpretation ABG results: PT/INR, D-dimer PT 13.2 Seconds (9.4-12.1) H 07/20/16 13:23 - Impressions Impressions Abdomen/Pelvis CT 07/20/16 11:01 IMPRESSION: 1. Interval progression of acute sigmoid diverticulitis with perforation and new small volume ascites and a 4.8 x 3.1 cm pericolonic gas and fluid collection. 2. There is a 3.3 cm pocket of fluid in the right pelvis which could represent a second fluid collection versus a fluid-filled bowel loop. 3. Hepatic steatosis. 4. Mild dilation of the common bile duct likely related to post cholecystectomy changes. 5. Although the bladder is decompressed, there is apparent bladder wall thickening and perivesicular stranding which could be reactive due to adjacent inflammatory changes within the sigmoid colon. Cystitis is not excluded. Critical results were called by Dr. Janiya Yanez MD to [facility] on 07/20/2016 at 12:17. D/ / 07/20/2016 12:22:59 Janiya Yanez MD / kaylee Interpreting Provider: Janiya Yanez MD Consult Discharge Plan - Plan Referrals: Brenda Rosado CNP [Primary Care Provider] - 07/29/16 10:40 am
[2016-07-22] MEDS: *HR* HYDROmorphone (PF) 1 MG/ML SYRINGE IVP PRN ×7 (02:46→23:42)
[2016-07-22] MEDS: Ondansetron 4 MG/2 ML VIAL IVP PRN ×2 (02:54→17:48)
[2016-07-22] MEDS: MetroNIDAZOLE 500 MG/100 ML 500 MG/100 ML BAG IVPB SCH ×4 (05:14→23:46)
[2016-07-22] MEDS: *HR* Heparin 5,000 UNIT/ML VIAL SQ SCH ×2 (05:15→09:39)
[2016-07-22 07:14] LABS: Basophils % 0.3 %; Eosinophils % 0.2 %; Hematocrit 30.8 % (35.3-44.9); Hemoglobin 10.3 g/dL (11.5-15.4); Immature Granulocytes % 0.6 % (0-4); Lymphocytes # 1.2 K/mcL (0.6-4.6); Lymphocytes % 11.2 %; Mean Corpuscular HGB Conc 33.4 g/dL (31.6-35.5); Mean Corpuscular Hemoglobin 29.7 pg (28.0-33.3); Mean Corpuscular Volume 88.8 fL (83.0-100.0); Mean Platelet Volume 10.1 fL (9.4-12.4); Monocytes # 0.6 K/mcL (0.0-1.3); Monocytes % 5.9 %; Neutrophils # 8.7 K/mcL (1.6-8.9); Platelet Count 320 K/mcL (140-400); Red Blood Count 3.47 M/mcL (3.82-4.97); Red Cell Distribution Width 12.7 % (11.5-14.5); Segmented Neutrophils % 81.8 %
[2016-07-22 07:32] LABS: BUN/Creatinine Ratio 5 (6-26); Calcium 7.9 mg/dL (8.6-10.8); Carbon Dioxide 24 mEq/L (19-29); Chloride 106 mEq/L (98-109); Glucose 108 mg/dL (70-99); Osmolality,Calculated 285 (280-300); Potassium 3.2 mEq/L (3.5-4.5); Sodium 139 mEq/L (136-145); eGFR For African Americans > 60 (> 60); eGFR For Non-African Americans > 60 (> 60)
[2016-07-22 07:46] LABS: Blood Urea Nitrogen 3 mg/dL (7-20)
[2016-07-22] MEDS: Piperacillin/Tazobactam 3.375 GM in D5% in Water (Mini-Bag+) 100 ML IVPB SCH ×3 (09:37→23:46)
[2016-07-22] MEDS: D5% in 0.9% NACL 1,000 ML IVC SCH ×2 (09:41→21:19)
[2016-07-22] MEDS: Potassium Chloride 40 MEQ, Lidocaine 1% 2 ML in D5% in Water 500 ML IVPB SCH ×2 (11:11→16:07)
[2016-07-22] MEDS: *HR* Promethazine 25 MG/ML VIAL IVP PRN ×3 (11:13→20:07)
[2016-07-22] MEDS ORDERED: D10% in Water 500 ML IV PRN (12:31)
--- NOTE | 2016-07-22 12:45 | General Surgery Progress Note ---
Date of Encounter: 07/22/16 Time of Encounter: 12:30 Subjective Patient reports: still having pain, pain is less, vomiting Narrative: General Surgery: patient feeling better but continues to vomit. Pain persists but has diminished and is now more centally located - caudal to the umbilicus Afebrile, 97.8; pulse 75, respirations 16, blood pressure 150/86; SPO2 on room air 96% Lungs: Clear to auscultation Abdomen: Soft, tender more centrally than before. Patient continues to vomit despite being NPO. Urine output 2550 mL in the last 24 hours; 1600 mL so far today Laboratories: White count 10.7, hemoglobin 10.3 with hematocrit 3 0.8; platelet count 320,000. Sodium 139, potassium 3.2, chloride 106, carbon dioxide 24, BUN 3, creatinine 0.56 Impression: Acute sigmoid diverticulitis with perforation. Persistent emesis, with resultant hypokalemia The persistent emesis is a concern. Patient has been on ATB since admission, 07/18/2016. Will schedule sigmoid colectomy for AM. The patient is aware of the potential for an end colostomy. Other risks of surgery include hemorrhage, infection, intra abdominal abscess, injury to adjacent structures such as adjacent small and large bowel, ureters and bladder, uterus and ovaries. Central venous line will also be established to provide prolonged IV access as well as TPN. Risks of CVL include hemorrhage, infection malposition of the catheter and pneumothorax. Will hold heparin in preparation for surgery Will continue IV supplementation potassium to correct hypokalemia. Patient expressed understanding and has consented to surgery. Objective Vital Signs - Last 8 Hours Temp Pulse Resp BP Pulse Ox 07/22/16 11:00 97.8 F 75 16 150/86 96 07/22/16 07:18 98.0 F 71 16 127/71 95 Intake and Output 07/21/16 07/22/16 07/22/16 23:59 07:59 15:59 Intake Total 200 / 200 1200 / 1200 100 / 100 Output Total 1250 / 1250 1300 / 1300 300 / 300 Balance -1050 / -1050 -100 / -100 -200 / -200 Intake: IV Fluids 200 / 200 1200 / 1200 100 / 100 D5% And 0.9% Nacl 1000 Ml 1000 / 1000 1,000 ML @ 60 mls/hr IVC .[id number] [facility] Rx#: [id number] Flagyl 500 MG/100 ML 500 100 / 100 100 / 100 100 / 100 mg In 100 ml @ 100 mls/hr IVPB Q6H [facility] Rx#: [id number] Zosyn 3.375 GM In 100 / 100 100 / 100 Dextrose 5% (Minibag+) 100 ML 100 ML @ 25 mls/hr IVPB Q8HR [facility] Rx#: [id number] Oral 0 / 0 0 / 0 0 / 0 Output: Urine 1250 / 1250 1300 / 1300 300 / 300 Other: Meal NPO Percent of Meal Consumed 0% Stool Size Moderate Stool Consistency loose Stool Characteristics Normal for Patient Stool Color Brown # Bowel Movements 1 Weight 107.048 kg Blood Glucose* 103 114 108 Patient Weight 07/22/16 23:59 Weight 107.048 kg - Labs 07/22/16 05:52 07/22/16 05:52 Diabetes panel 07/22/16 Range/Units 05:52 Sodium 139 (136-145) mEq/L Potassium 3.2 L (3.5-4.5) mEq/L Chloride 106 (98-109) mEq/L Carbon Dioxide 24 (19-29) mEq/L BUN 3 L (7-20) mg/dL Creatinine 0.56 L (0.57-1.11) mg/dL Glucose 108 H (70-99) mg/dL Calcium 7.9 L (8.6-10.8) mg/dL Calcium panel 07/22/16 Range/Units 05:52 Calcium 7.9 L (8.6-10.8) mg/dL Pituitary panel 07/22/16 Range/Units 05:52 Sodium 139 (136-145) mEq/L Potassium 3.2 L (3.5-4.5) mEq/L Chloride 106 (98-109) mEq/L Carbon Dioxide 24 (19-29) mEq/L BUN 3 L (7-20) mg/dL Creatinine 0.56 L (0.57-1.11) mg/dL Glucose 108 H (70-99) mg/dL Calcium 7.9 L (8.6-10.8) mg/dL Adrenal panel 07/22/16 Range/Units 05:52 Sodium 139 (136-145) mEq/L Potassium 3.2 L (3.5-4.5) mEq/L Chloride 106 (98-109) mEq/L Carbon Dioxide 24 (19-29) mEq/L BUN 3 L (7-20) mg/dL Creatinine 0.56 L (0.57-1.11) mg/dL Glucose 108 H (70-99) mg/dL Calcium 7.9 L (8.6-10.8) mg/dL Consult Discharge Plan - Plan Referrals: Brenda Rosado CNP [Primary Care Provider] - 07/29/16 10:40 am
--- NOTE | 2016-07-22 16:10 | Internal Med Progress Note ---
Date of Encounter: 07/22/16 Time of Encounter: 16:08 - Assessment and plan (1) Sigmoid diverticulitis Current Visit: Yes Status: Acute Assessment and plan: being tretaed for perforated sigmoid diverticulitis. NPO, IVF, surgery is following. initially some imporvemne with clinical tx however has episodes of vomiting this morning. antibiotics continued along with zofran and phenergan Blood culture preliminary shows no growth, leucocytosis seems to have improved. will follow surgical recommendations. Plan for surgery tomorrow morning,central line for TPN to be placed at surgery. will continue to follow. (2) DVT prophylaxis Current Visit: Yes Status: Acute - Time Spent With Patient 25 - 35 minutes - Subjective Interval history: patinet admitted for acute diverticulitis, seen at the bedside had multiple episodes of vomiting this morning. complicated by diverticular perforation. being followed by surgery, planned for surgery tomm am. - Constitutional Vitals: Temp Pulse Resp BP Pulse Ox 97.6 F 76 16 137/81 98 07/22/16 15:05 07/22/16 15:05 07/22/16 15:05 07/22/16 15:05 07/22/16 15:05 General appearance: Present: A&O X 3, no acute distress Exam: Neck: No obvious neck swellings Lungs: Clear to auscultation Cardiac: Regular rate and rhythm. No significant murmurs Abdomen:feels soft, mild tenderness lower abdomen , bs are present, no rebound Genitourinary: No gutierrez catheter Neurological: Alert and oriented. No gross localizing deficits Psych: Not aggressive or agitated Extremities: no significant leg edema Skin: No generalized rash Internal Medicine: Result - Labs CBC & Chem 7: 07/22/16 05:52 07/22/16 14:51 Labs: Short CBC 07/22/16 Range/Units 05:52 WBC 10.7 (4.3-11.1) K/mcL Hgb 10.3 L (11.5-15.4) g/dL Hct 30.8 L (35.3-44.9) % Plt Count 320 (140-400) K/mcL Neutrophils # 8.7 (1.6-8.9) K/mcL BMP 07/22/16 07/22/16 05:52 14:51 Sodium 139 Potassium 3.2 L 3.6 Chloride 106 Carbon Dioxide 24 BUN 3 L Creatinine 0.56 L Glucose 108 H Calcium 7.9 L - ABG Interpretation ABG results: PT/INR, D-dimer PT 13.2 Seconds (9.4-12.1) H 07/20/16 13:23 Consult Discharge Plan - Plan Referrals: Brenda Rosado CNP [Primary Care Provider] - 07/29/16 10:40 am
[2016-07-23 04:29] LABS: Basophils # 0.1 K/mcL (0.0-0.2); Basophils % 0.5 %; Eosinophils # 0.1 K/mcL (0.0-0.6); Eosinophils % 0.8 %; Hematocrit 35.9 % (35.3-44.9); Hemoglobin 11.8 g/dL (11.5-15.4); Immature Granulocytes % 0.8 % (0-4); Lymphocytes # 2.3 K/mcL (0.6-4.6); Lymphocytes % 21.8 %; Mean Corpuscular HGB Conc 32.9 g/dL (31.6-35.5); Mean Corpuscular Hemoglobin 29.5 pg (28.0-33.3); Mean Corpuscular Volume 89.8 fL (83.0-100.0); Mean Platelet Volume 9.3 fL (9.4-12.4); Monocytes # 0.8 K/mcL (0.0-1.3); Neutrophils # 7.4 K/mcL (1.6-8.9); Platelet Count 392 K/mcL (140-400); Red Cell Distribution Width 12.9 % (11.5-14.5); Segmented Neutrophils % 69.1 %
[2016-07-23 04:39] LABS: Magnesium 1.5 mg/dL (1.6-2.6); Phosphorous 3.2 mg/dL (2.3-4.7)
[2016-07-23] MEDS: Ondansetron 4 MG/2 ML VIAL IVP PRN ×4 (04:44→23:28)
[2016-07-23 04:46] LABS: Alanine Aminotransferase 38 Units/L (0-55); Albumin 2.6 g/dL (3.5-5.0); Albumin/Globulin Ratio 0.6 (1.1-2.2); Alkaline Phosphatase 107 Units/L (38-126); Aspartate Amino Transferase 37 Units/L (5-34); BUN/Creatinine Ratio 4 (6-26); Bilirubin,Total 0.5 mg/dL (0.2-1.2); Calcium 8.8 mg/dL (8.6-10.8); Carbon Dioxide 28 mEq/L (19-29); Chloride 104 mEq/L (98-109); Globulin 4.4 g/dL (2.4-3.5); Glucose 99 mg/dL (70-99); Osmolality,Calculated 287 (280-300); Potassium 3.8 mEq/L (3.5-4.5); Sodium 140 mEq/L (136-145); eGFR For African Americans > 60 (> 60); eGFR For Non-African Americans > 60 (> 60)
[2016-07-23] MEDS: *HR* HYDROmorphone (PF) 1 MG/ML SYRINGE IVP PRN ×8 (04:47→23:33)
[2016-07-23 04:50] LABS: Blood Urea Nitrogen 3 mg/dL (7-20)
[2016-07-23] MEDS: MetroNIDAZOLE 500 MG/100 ML 500 MG/100 ML BAG IVPB SCH ×4 (04:50→23:31)
--- NOTE | 2016-07-23 07:24 | Anesthesia Evaluation PreOp ---
Date of Encounter: 07/23/16 Time of Encounter: 07:22 - Past History Planned Operation: Sigmoid colectomy Cardiac History: Other (MVP withoutRegurg.) Pulmonary History: Former smoker, Pack/yr (1.5 ppd x 30 years, quit smoking 6 years ago), Asthma COATER ASSOCIATE History: Denies Any Significant HX Other Medical History: Denies Any Significant HX Anesthesia History: No Prior Anesthetic Complications, Past Anesthesia (GB) : No Alcohol Use: none Drug use: none Medications and Allergies Cetirizine HCl [Zyrtec] 10 mg PO DAILY 07/18/16 [History] Gabapentin [Neurontin] 300 mg PO HS 07/18/16 [History] Mv-Mn/FA/Vit K/Lycop/Lut/Coq10 [Daily Multivitamin Capsule] 1 each PO DAILY [History] Ranitidine HCl [Acid Residential Glazier] 75 mg PO DAILY 07/18/16 [History] Topiramate [Topiramate] 50 mg PO HS 07/18/16 [History] Allergies Erythromycin Base Allergy (Verified 07/18/16 10:08) Hives Tetracyclines Allergy (Verified 07/18/16 10:08) Hives - Meds/Allergy Pre-op Review Medications Reviewed: Yes Allergies Reviewed: Yes Beta Blockers on Current Med List: No Anesthesia Results - Labs 07/23/16 04:08 07/23/16 04:08 - Imaging EKG: image reviewed (SR) Anesthesia Exam O2 Sat Weight 107.3 kg O2 Sat by Pulse Oximetry 94 O2 Sat by Pulse Oximetry 95 O2 Sat by Pulse Oximetry 97 O2 Sat by Pulse Oximetry 98 O2 Sat by Pulse Oximetry 96 Vital Signs Temp Pulse Resp BP Pulse Ox 97.8 F 71 18 143/86 98 07/17/16 18:44 07/17/16 18:44 07/17/16 18:44 07/17/16 18:44 07/17/16 18:44 Vital Signs/O2 Sat, Most Current Temp Pulse Resp BP Pulse Ox 98.8 F 83 16 127/72 94 L 07/23/16 03:58 07/23/16 03:58 07/23/16 03:58 07/23/16 03:58 07/23/16 03:58 Height: 5'5'' Weight: 236# NPO (# of Hours): > 8 hrs Pain Scale: 0 Pain Scale Used: Numeric (1 - 10) - HEENT Pupil (Motor): Pupils equal, EOMI Mallampati: III Teeth: Normal Oral Opening: Greater than 3 - COATER ASSOCIATE LOC: Oriented COATER ASSOCIATE Motor: Normal RUE, Normal LUE, Normal RLE, Normal LLE, Normal Face COATER ASSOCIATE Sensory: Normal: RUE, LUE, RLE, LLE, Face - Cardiac Rhythm: Regular Murmur: None JVD: No Carotid Bruit: No - Pulmonary Breath Sounds: bilateral Clear Respiratory Effort: Symmetrical Anesthesia Assess/Plan ASA Score: 2 Modified Karla Scale for Level of Consciousness: Cooperative, oriented, and tranquil Anesthetic Plan: General Autologous Blood: Yes Monitoring Plan: Standard Monitors Recovery Plan: PACU
[2016-07-23] MEDS ORDERED: *HR* HYDROmorphone (PF) 1 MG/ML SYRINGE IVP PRN (07:29)
[2016-07-23] MEDS ORDERED: *HR* Promethazine 25 MG/ML VIAL IVP PRN (07:29)
[2016-07-23] MEDS ORDERED: *HR* Labetalol 100 MG/20 ML MDV IVP PRN (07:29)
[2016-07-23] MEDS ORDERED: Albuterol 2.5 MG/3 ML NEBULIZER IH ONE (07:29)
[2016-07-23] MEDS ORDERED: *HR* FentaNYL (PF) 100 MCG/2 ML VIAL ONE (07:35)
[2016-07-23] MEDS ORDERED: *HR* Midazolam HCl 2 MG/2 ML VIAL ONE (07:35)
[2016-07-23] MEDS ORDERED: *HR* Propofol 200 MG/20 ML VIAL IVP ONE (07:35)
[2016-07-23] MEDS ORDERED: Lidocaine -MPF 2% 2 ML VIAL ONE (07:37)
[2016-07-23] MEDS ORDERED: Dexamethasone 4 MG/ML VIAL ONE (07:37)
[2016-07-23] MEDS ORDERED: Ondansetron 4 MG/2 ML VIAL ONE (07:37)
[2016-07-23] MEDS ORDERED: *HR* Rocuronium Bromide 50 MG/5 ML VIAL ONE (07:37)
[2016-07-23] MEDS ORDERED: *HR* Succinylcholine 200 MG/10 ML VIAL IVP ONE (07:37)
[2016-07-23] MEDS ORDERED: Ringers Solution, Lactated 1,000 ML IVC SCH (07:45)
[2016-07-23] MEDS: Piperacillin/Tazobactam 3.375 GM in D5% in Water (Mini-Bag+) 100 ML IVPB SCH ×3 (08:10→23:38)
[2016-07-23] MEDS ORDERED: *HR* HYDROmorphone 2 MG/ML SYRINGE ONE (08:56)
[2016-07-23] MEDS ORDERED: Neostigmine Methylsulfate 3 MG/3 ML SYRINGE ONE (11:32)
--- NOTE | 2016-07-23 12:36 | Operative Note ---
Date of procedure: 07/23/16 Pre-op diagnosis: Acute sigmoid diverticulitis with perforation, pericolic abscess Post-op diagnosis: same Procedure: Exploratory celiotomy, sigmoid colectomy with incidental appendectomy; stapled EEA colocolonic anastomosis; intraoperative rigid sigmoidoscopy; placement of central venous line via left subclavian vein Complications: None apparent Anesthesia: LIAM Surgeon: Santiago Rodrigues Estimated blood loss (cc): 500 IV fluids (cc): 2,500 Specimen: sigmoid colon, anastomotic rings, appendix Condition: stable Disposition: PACU Procedure in Detail: The patient was brought to the operating room where she was placed supine upon the operating room table. Patient was appropriately identified as to person and procedure. The accuracy of this information was confirmed by the procedure team. The patient was intubated and anesthetized under the supervision of Dr. Audie Barker. Once the airway was secured, an OG tube was passed, a Resendez catheter was established, and the patient was placed in low lithotomy using yellowfin stirrups. The perineum was prepped with Betadine and the abdomen was prepped with chlorhexidine. Sterile drapes were applied in the usual sterile fashion. A midline incision was made from just above the umbilicus to the symphysis pubis. The incision was carried through the subcutaneous tissue. Bleeding points were controlled with Bovie electrocautery. The fascia was divided in the midline along the linea alba allowing atraumatic entry into the abdominal cavity. Exposure was facilitated with a self-retaining Omni tract retractor. Examination of the peritoneal cavity demonstrated a normal- appearing liver with no obvious lesions, stomach and spleen were unremarkable with appropriate positioning of the orogastric tube within the lumen of the stomach. The small bowel was examined from the ligament of Treitz to the ileocecal valve. A normal-appearing appendix was evident. This was grasped with a Jung clamp, the mesoappendix was divided at the junction of the appendix with the cecum allowing placement of an Ethicon TX 60 mm stapler (blue cartridge) to divide the appendix at its junction with the cecum. The mesoappendix was then divided with the aid of a CovDoubleVerify Ligasure Impact dissector. The appendix was removed from the operative field. Descending and transverse colon was grossly normal as was the descending colon. Acute inflammatory changes were evident involving the sigmoid colon consistent with the clinical diagnosis. Sigmoid colon was adherent to several loops of small bowel as well as the lateral and anterior peritoneal wall. The uterus appeared to be grossly normal. The bilateral tubes and ovaries demonstrated some inflammatory changes related to the adjacent sigmoid diverticulitis with pericolic abscess. As the sigmoid was mobilized on the surrounding structures, the abscess cavity was entered. Fluid was evacuated with the suction device. The sigmoid colon was mobilized by incising the lateral peritoneal reflection along the white line of Toldt. A point on the descending colon was selected, the mesentery divided, followed by division of the descending colon using the Ethicon TX 60 mm stapler (blue cartridge). A bowel clamp was applied to the colon distal to the staple line and the bowel was divided. The mesentery of the sigmoid colon was dissected with the aid of the Ligasure dissector. The left colic vessels were identified, suture ligated with 2-0 silk, and divided. The dissection proceeded into the pelvis to approximately the rectosigmoid junction. The bowel was divided using the Ethicon TX 60 mm stapler(blue cartridge). The sigmoid colon was removed from the surgical field. A pursestring device was applied to the distal descending colon and the previous staple line excised. The bowel measured 29 mm using an EEA sound. This allowed me to select a 29 mm ECS EEA stapler to complete the colocolonic anastomosis. The anvil was placed in the distal descending colon, the pursestring was secured. It was necessary to dissect along the descending colon proximal to the splenic flexure to facilitate sufficient mobilization to allow a tension-free anastomosis to be completed. Once this was completed, the surgeon proceeded to the perineum. The EEA sound was inserted rectally to the staple line. The distance to the staple line from the anal verge was approximately 10 centimeters. The EEA stapler was then inserted, the spike passed through the staple line, and the stapled EEA anastomosis completed. After extracting the stapler, 2 intact anastomotic rings were encountered. The proximal anastomotic ring was tagged with a suture to differentiate it from the distal anastomotic ring. An intraoperative rigid sigmoidoscopy was completed. The staple line was visually intact and insufflation of the colon and no air leak (string of bubbles) was identified in the saline filled pelvis. The surgeon was regowned and gloved. The pelvis was copiously irrigated with warm sterile saline which was evacuated with the suction device. Hemostasis appeared to be adequate. Closure was then initiated in layers. The peritoneum was closed with a running interlocking 0 Vicryl. The fascia was reapproximated with interrupted [id number] 0 Vicryl. The subcutaneous tissue was reapproximated with 3-0 Vicryl and the skin edges reapproximated with rochelle. A dry sterile dressing was applied. The surgery was again regowned and gloved in preparation for placement of a central venous line via the left subclavian vein. The left anterior chest and shoulder was prepped with chlorhexidine whole -body drape was used. The patient was placed in Trendelenburg. Using an 18- gauge needle, the left subclavian vein was located. At no time was air aspirated. In the technique described by Rick, a guidewire was inserted, the needle was extracted. The skin tract was incised and dilated. A 16 cm 3 lumen 7 Syriac Arrow-olivia catheter was passed over the guidewire to 15 cm. The guidewire was removed. The catheter was secured to the infraclavicular skin at 15 cm with 3-0 silk. The 3 ports aspirated easily for blood were flushed with saline. A Biopatch was applied followed by an OpSite dressing. The patient was taken to PACU in stable condition. Needle, sponge, and instrument counts were correct at the close of the case. A stat portable chest x-ray is pending and will be reviewed on completion.
[2016-07-23] MEDS ORDERED: 0.9 % Sodium Chloride 1,000 ML IVC SCH (13:00)
--- NOTE | 2016-07-23 13:05 | Anesthesia Evaluation Post Op ---
Date of Encounter: 07/23/16 Time of Encounter: 13:04 - Vital Signs Vital Signs: Vital Signs/O2 Sat, Most Current Temp Pulse Resp BP Pulse Ox 98.4 F 85 16 148/85 97 07/23/16 13:02 07/23/16 13:02 07/23/16 13:02 07/23/16 13:02 07/23/16 13:02 - Lungs Lungs: Clear Ascult./Percussion - Airway Airway: Non-obstructed - Cardiovascular Regular Rate - Mental Status Mental Status: Alert & Oriented, Answers Appropriately - Pain Pain Scale: 0 Pain Scale used: Numeric (1 - 10) - Nausea Vomiting Nausea Vomiting: Not Present - Hydration Hydration: NPO, Resendez catheter - Discharge PostOp Status: Transfer Patient to floor
[2016-07-23] MEDS ORDERED: Naloxone 0.4 MG/ML INJ IVP PRN (13:33)
[2016-07-23] MEDS ORDERED: Dextrose Gel 15 GM PO PRN (13:33)
[2016-07-23] MEDS ORDERED: Acetaminophen IV 1,000 MG/100 ML INFUS..BTL IVPB PRN (13:33)
[2016-07-23] MEDS ORDERED: Magnesium Sulfate 2 GM in D5% in Water 100 ML IVPB ONE (13:33)
[2016-07-23] MEDS ORDERED: Albuterol 2.5 MG/3 ML NEBULIZER IH PRN (13:33)
[2016-07-23] MEDS ORDERED: D5% in Water 1,000 ML IV PRN (13:33)
[2016-07-23] MEDS ORDERED: D10% in Water 500 ML IV PRN (13:33)
[2016-07-23] MEDS: 0.9 % Sodium Chloride 1,000 ML IVC SCH (14:47)
--- NOTE | 2016-07-23 15:33 | Event Note ---
Date of Encounter: 07/23/16 Time of Encounter: 15:31 patinet planned for exp laparotomy today with DR. henson seen at the bedside, post op. c/o pain abdomen s/p exploratory celiotomy, sigmoid colectomy and incidental appendectomy with placement of the central venous line. vitals stable. to be started on TPN> will continue the dilaudid q1hr 0.5 mg prn and IV antibiotics. post op care as per surgery will follow recommendations , to remain NPO.
[2016-07-23] MEDS: Insulin LISPRO 300 UNITS/3 ML VIAL SQ SCH ×3 (16:12→21:00)
[2016-07-23] MEDS: Pantoprazole 40 MG VIAL IVP SCH (16:17)
[2016-07-23] MEDS ORDERED: Clinimix E 5%-15% SOLUTION 2,000 ML with MVI, adult with vitamin K 10 ML IV SCH ×2 (17:00)
[2016-07-24] MEDS: Insulin LISPRO 300 UNITS/3 ML VIAL SQ SCH ×6 (00:16→21:39)
[2016-07-24] MEDS: *HR* HYDROmorphone (PF) 1 MG/ML SYRINGE IVP PRN ×3 (02:30→08:26)
[2016-07-24] MEDS: *HR* Promethazine 25 MG/ML VIAL IVP PRN (03:34)
[2016-07-24 03:36] LABS: Basophils % 0.3 %; Eosinophils # 0.1 K/mcL (0.0-0.6); Eosinophils % 0.6 %; Hematocrit 35.7 % (35.3-44.9); Hemoglobin 11.1 g/dL (11.5-15.4); Immature Granulocytes % 1.1 % (0-4); Lymphocytes # 2.2 K/mcL (0.6-4.6); Lymphocytes % 18.9 %; Mean Corpuscular HGB Conc 31.1 g/dL (31.6-35.5); Mean Corpuscular Hemoglobin 28.8 pg (28.0-33.3); Mean Corpuscular Volume 92.7 fL (83.0-100.0); Mean Platelet Volume 9.1 fL (9.4-12.4); Monocytes # 1.2 K/mcL (0.0-1.3); Monocytes % 10.4 %; Neutrophils # 8.1 K/mcL (1.6-8.9); Platelet Count 464 K/mcL (140-400); Red Blood Count 3.85 M/mcL (3.82-4.97); Segmented Neutrophils % 68.7 %
[2016-07-24 03:48] LABS: Magnesium 1.9 mg/dL (1.6-2.6)
[2016-07-24] MEDS: MetroNIDAZOLE 500 MG/100 ML 500 MG/100 ML BAG IVPB SCH ×3 (05:22→17:44)
[2016-07-24] MEDS: Pantoprazole 40 MG VIAL IVP SCH (08:26)
[2016-07-24] MEDS: Ondansetron 4 MG/2 ML VIAL IVP PRN ×2 (08:26→17:46)
[2016-07-24] MEDS: Piperacillin/Tazobactam 3.375 GM in D5% in Water (Mini-Bag+) 100 ML IVPB SCH ×2 (08:27→17:47)
[2016-07-24] MEDS: 0.9 % Sodium Chloride 1,000 ML IVC SCH ×2 (08:28→17:47)
--- NOTE | 2016-07-24 10:08 | General Surgery Progress Note ---
Date of Encounter: 07/24/16 Time of Encounter: 09:30 Subjective Narrative: Postoperative day 1: Patient indicates that she was feeling well until approximately 3 AM when she experienced some nausea and vomiting. This appeared to be related to IV administration of Dilaudid. The patient describes a "sensitivity" to all narcotic analgesics and if, given slowly, the medications are better tolerated. The patient is afebrile, 97.9, pulse 85, respirations 14, blood pressure 135/ 79. SPO2 on 1 L/m nasal cannula 96% Lungs: Clear though right basilar breath sounds are slightly diminished. No audible rales or wheezes Cardiac: Regular rate, no appreciable murmurs Abdomen: Soft with very few bowel sounds. Midline incision clean and dry, dressing removed. No flatus or BM. Extremities: Upper extremities slightly edematous Laboratories: White count 11.8, hemoglobin 11.1, hematocrit 35.7. Platelet count 464,000. Basic metabolic profile still pending. Will check results when available for any electrolyte abnormalities that may require correction Accu-Cheks 126-137, on TPN. Urine output approximately 400mL via Resendez which had been placed intraoperatively; 125 mL so far today. Impression: Postoperative day 1, status post sigmoid colectomy with primary colo -colonic anastomosis. Acceptable status. Plan: Continue TPN, increase to goal rate Remove dressing, we have incision open air Remove Resendez catheter. Bedside commode to be available. Check labs and correct any electrolyte abnormalities as needed Encourage activity out of bed as well as incentive spirometry Substitute morphine for dilaudid and monitor for adequate pain relief without N/V continue albuterol aerosol therapy Objective Vital Signs - Last 8 Hours Temp Pulse Resp BP Pulse Ox 07/24/16 07:00 97.9 F 85 14 135/79 96 07/24/16 03:23 98.0 F 89 15 109/72 94 L Intake and Output 07/23/16 07/24/16 07/24/16 23:59 07:59 15:59 Intake Total 300 / 300 1665 / 1665 321 / 321 Output Total 400 / 400 525 / 525 Balance -100 / -100 1140 / 1140 321 / 321 Intake: IV Fluids 300 / 300 1665 / 1665 321 / 321 Clinimix E 5%-15% 436 / 436 SOLUTION 2,000 ML @ 50 mls/hr IV .Q24H MARYURI with M.v.i. Adult 10 ml Rx#: [id number] 0.9 % Sodium Chloride 1, 679 / 679 321 / 321 000 ML @ 75 mls/hr IVC . [id number] MARY[facility] Rx#: [id number] Ofirmev 1,000 mg In 100 100 / 100 ml @ 400 mls/hr IVPB Q6H PRN Rx#:[id number] Intralipid 20% 250 ML @ 250 / 250 21 mls/hr IVPB DAILY@1700 M[facility] Rx#:[id number] Flagyl 500 MG/100 ML 500 100 / 100 200 / 200 mg In 100 ml @ 100 mls/hr IVPB Q6H [facility] Rx#: [id number] Zosyn 3.375 GM In 100 / 100 100 / 100 Dextrose 5% (Minibag+) 100 ML 100 ML @ 25 mls/hr IVPB Q8H MARY[facility] Rx#: [id number] Oral 0 / 0 0 / 0 Output: Emesis 400 / 400 Catheter 400 / 400 125 / 125 Other: Meal NPO Percent of Meal Consumed 0% Blood Glucose* 124 137 127 - Labs 07/24/16 03:15 07/23/16 04:08 Calcium panel 07/24/16 Range/Units 03:15 Phosphorus 4.0 (2.3-4.7) mg/dL - VTE Documentation of Mechanical Device: Intermittent pneumatic compression device Consult Discharge Plan - Plan Referrals: Brenda Rosado CNP [Primary Care Provider] - 07/29/16 10:40 am Santiago Rodrigues MD [Non-Partnered Physician] -
[2016-07-24 10:16] LABS: BUN/Creatinine Ratio 10 (6-26); Blood Urea Nitrogen 7 mg/dL (7-20); Calcium 8.7 mg/dL (8.6-10.8); Carbon Dioxide 27 mEq/L (19-29); Chloride 102 mEq/L (98-109); Glucose 111 mg/dL (70-99); Osmolality,Calculated 287 (280-300); Potassium 3.8 mEq/L (3.5-4.5); Sodium 139 mEq/L (136-145); eGFR For African Americans > 60 (> 60); eGFR For Non-African Americans > 60 (> 60)
[2016-07-24] MEDS: *HR* Morphine 2 MG/ML SYRINGE IVP PRN ×4 (11:00→20:37)
[2016-07-24 11:34] LABS: BUN/Creatinine Ratio 16 (6-26); Blood Urea Nitrogen 10 mg/dL (7-20); Carbon Dioxide 26 mEq/L (19-29); Chloride 103 mEq/L (98-109); Glucose 123 mg/dL (70-99); Osmolality,Calculated 286 (280-300); Potassium 3.6 mEq/L (3.5-4.5); Sodium 138 mEq/L (136-145); eGFR For African Americans > 60 (> 60); eGFR For Non-African Americans > 60 (> 60)
--- NOTE | 2016-07-24 12:13 | Internal Med Progress Note ---
Date of Encounter: 07/24/16 Time of Encounter: 11:51 - Assessment and plan (1) Sigmoid diverticulitis Current Visit: Yes Status: Acute Assessment and plan: being tretaed for perforated sigmoid diverticulitis. s/p exploratory celiotomy, sigmoid colectomy and incidental appendectomy with placement of the central venous line. POD #1 initially some imporvemne with clinical tx however has episodes of vomiting this morning. antibiotics continued along with zofran and phenergan Blood culture preliminary shows no growth. will follow surgical recommendations. TPN started , continue pain meds. NPO. encourage incentive spirometer, DVT prophylaxis will continue to follow. (2) DVT prophylaxis Current Visit: Yes Status: Acute - Time Spent With Patient 25 - 35 minutes - Subjective Interval history: patinet admitted for acute diverticulitis,complicated by diverticular perforation, s/p surgery yesterday. POD #1 today, c/o post op pain, one episode of vomiting last night being followed by surgery. - Constitutional Vitals: Temp Pulse Resp BP Pulse Ox 97.9 F 85 14 135/79 96 07/24/16 07:00 07/24/16 07:00 07/24/16 07:00 07/24/16 07:00 07/24/16 07:00 General appearance: Present: A&O X 3, no acute distress Exam: Neck: No obvious neck swellings Lungs: Clear to auscultation Cardiac: Regular rate and rhythm. No significant murmurs Abdomen:feels soft, no bowel sounds heard, tender at the incision site, wound site looks clean. Genitourinary: No gutierrez catheter Neurological: Alert and oriented. No gross localizing deficits Psych: Not aggressive or agitated Extremities: no significant leg edema Skin: No generalized rash Internal Medicine: Result - Labs CBC & Chem 7: 07/24/16 03:15 07/24/16 10:25 Labs: Short CBC 07/24/16 Range/Units 03: WBC 11.8 H (4.3-11.1) K/mcL Hgb 11.1 L (11.5-15.4) g/dL Hct 35.7 (35.3-44.9) % Plt Count 464 H (140-400) K/mcL Neutrophils # 8.1 (1.6-8.9) K/mcL BMP 07/24/16 07/24/16 03:15 10:25 Sodium 139 138 Potassium 3.8 3.6 Chloride 102 103 Carbon Dioxide 27 26 BUN 7 10 Creatinine 0.68 0.64 Glucose 111 H 123 H Calcium 8.7 8.0 L - ABG Interpretation ABG results: PT/INR, D-dimer PT 13.2 Seconds (9.4-12.1) H 07/20/16 13:23 - Impressions Impressions Chest X-Ray 07/23/16 12:04 IMPRESSION: Left central venous catheter tip projects over the course of the superior vena cava. No acute cardiopulmonary process. D/ / 07/23/2016 13:36:18 Rica Yanez MD / bcarter Interpreting Provider: Rica Yanez MD - VTE Documentation of Mechanical Device: Intermittent pneumatic compression device Consult Discharge Plan - Plan Referrals: Brenda Rosado CNP [Primary Care Provider] - 07/29/16 10:40 am Santiago Rodrigues MD [Non-Partnered Physician] -
[2016-07-24] MEDS: *HR* Heparin 5,000 UNIT/ML VIAL SQ SCH ×2 (15:07→17:46)
[2016-07-24] MEDS ORDERED: Clinimix E 5%-15% SOLUTION 2,000 ML with MVI, adult with vitamin K 10 ML IV SCH ×2 (17:00)
[2016-07-24] MEDS ORDERED: *HR* Alteplase (Cathflo) 2 MG VIAL IVP ONE (22:06)
[2016-07-25] MEDS: *HR* Promethazine 25 MG/ML VIAL IVP PRN (00:37)
[2016-07-25] MEDS: Piperacillin/Tazobactam 3.375 GM in D5% in Water (Mini-Bag+) 100 ML IVPB SCH ×3 (00:40→17:27)
[2016-07-25] MEDS: *HR* Morphine 2 MG/ML SYRINGE IVP PRN ×7 (00:41→21:58)
[2016-07-25] MEDS: MetroNIDAZOLE 500 MG/100 ML 500 MG/100 ML BAG IVPB SCH ×4 (00:43→17:40)
[2016-07-25] MEDS: Insulin LISPRO 300 UNITS/3 ML VIAL SQ SCH ×4 (00:51→18:11)
[2016-07-25] MEDS: 0.9 % Sodium Chloride 1,000 ML IVC SCH (03:35)
[2016-07-25 03:40] LABS: Basophils % 0.3 %; Eosinophils # 0.1 K/mcL (0.0-0.6); Eosinophils % 0.9 %; Hematocrit 30.4 % (35.3-44.9); Hemoglobin 9.6 g/dL (11.5-15.4); Immature Granulocytes % 1.4 % (0-4); Lymphocytes # 1.9 K/mcL (0.6-4.6); Mean Corpuscular HGB Conc 31.6 g/dL (31.6-35.5); Mean Corpuscular Hemoglobin 29.3 pg (28.0-33.3); Mean Corpuscular Volume 92.7 fL (83.0-100.0); Mean Platelet Volume 8.9 fL (9.4-12.4); Monocytes % 8.7 %; Platelet Count 359 K/mcL (140-400); Red Blood Count 3.28 M/mcL (3.82-4.97); Red Cell Distribution Width 12.9 % (11.5-14.5); Segmented Neutrophils % 71.7 %
[2016-07-25 03:50] LABS: Magnesium 1.6 mg/dL (1.6-2.6); Phosphorous 2.6 mg/dL (2.3-4.7)
[2016-07-25 03:53] LABS: Alanine Aminotransferase 23 Units/L (0-55); Albumin 2.2 g/dL (3.5-5.0); Albumin/Globulin Ratio 0.6 (1.1-2.2); Alkaline Phosphatase 67 Units/L (38-126); Aspartate Amino Transferase 17 Units/L (5-34); BUN/Creatinine Ratio 18 (6-26); Bilirubin,Total 0.3 mg/dL (0.2-1.2); Blood Urea Nitrogen 10 mg/dL (7-20); Calcium 8.3 mg/dL (8.6-10.8); Carbon Dioxide 30 mEq/L (19-29); Chloride 102 mEq/L (98-109); Globulin 3.6 g/dL (2.4-3.5); Glucose 119 mg/dL (70-99); Osmolality,Calculated 286 (280-300); Potassium 3.3 mEq/L (3.5-4.5); Sodium 138 mEq/L (136-145); Total Protein 5.8 g/dL (6.0-8.3); eGFR For African Americans > 60 (> 60); eGFR For Non-African Americans > 60 (> 60)
[2016-07-25] MEDS: *HR* Heparin 5,000 UNIT/ML VIAL SQ SCH ×2 (05:00→17:38)
[2016-07-25] MEDS: Pantoprazole 40 MG VIAL IVP SCH (08:12)
[2016-07-25] MEDS: D5% in 0.9% NACL 1,000 ML IVC SCH (11:39)
[2016-07-25] MEDS ORDERED: Magnesium Sulfate 1 GM in D5% in Water 100 ML IVPB ONE (12:11)
[2016-07-25] MEDS ORDERED: Potassium Chloride 40 MEQ, Lidocaine 1% 2 ML in D5% in Water 500 ML IVPB ONE (12:11)
--- NOTE | 2016-07-25 12:26 | General Surgery Progress Note ---
Date of Encounter: 07/25/16 Time of Encounter: 12:00 Subjective Patient reports: feels better Narrative: Postoperative day 2: Patient feeling well, nausea and vomiting has resolved. Incisional pain controlled with IV morphine Maximum temperature, 99.0; pulse 82, respirations 16, blood pressure 137/80. SPO2 on room air 94-95%. Lungs: Clear; better aeration right lung base. Compared to yesterday Abdomen: Soft, minimally tender, few active bowel sounds. No flatus or BM. Midline incision clean and dry Urine output: Approximately 1000 mL Pathology: Still pending Labs: White count 11.2; hemoglobin 9.6, hematocrit 30.4 - H & H likely diminished due to IV fluids and TPN / hydration Platelet count 359,000 Sodium 138; potassium 3.3, BUN 10 creatinine 0.57; phosphorus 2.6, magnesium 1.6, total protein 5.8, albumin 2.2 Accu-Cheks - 113-125 mg/dL Impression: Postoperative day 2, status post sigmoid colectomy for acute diverticulitis with perforation - acceptable postoperative status; pathology pending. Awaiting return of bowel function to resume diet. Resolving leukocytosis Recurrent hypokalemia - treat with supplemental IV potassium Borderline magnesium - treat with supplemental IV magnesium sulfate Hypoproteinemia, hypoalbuminemia - patient on TPN until enteral route becomes available. Adjust TPN as indicated. Anemia/diminished hemoglobin and hematocrit - most likely due to IV fluids and hydration and hydration generated by TPN. Postoperative nausea and vomiting likely due to Dilaudid, symptoms improved with morphine with adequate pain control. Objective Vital Signs - Last 8 Hours Temp Pulse Resp BP Pulse Ox 07/25/16 11:04 99 F 82 16 137/80 95 07/25/16 07:52 98.5 F 86 16 159/80 94 L Intake and Output 07/24/16 07/25/16 07/25/16 23:59 07:59 15:59 Intake Total 200 / 200 2087 Output Total 200 / 200 400 / 400 600 / 600 Balance 0 / 0 1687 / 1688 -600 / -600 Intake: IV Fluids 200 / 200 2087 Clinimix E 5%-15% 538 / 538 SOLUTION 2,000 ML @ 60 mls/hr IV .Q24H MARYURI with M.v.i. Adult 10 ml Rx#: [id number] Intralipid 20% 250 ML @ 250 / 250 21 mls/hr IVPB DAILY@1700 ON LICENSE OF [facility] Rx#:[id number] Flagyl 500 MG/100 ML 500 100 / 100 200 / 200 mg In 100 ml @ 100 mls/hr IVPB Q6H ON LICENSE OF [facility] Rx#: [id number] Zosyn 3.375 GM In 100 / 100 100 / 100 Dextrose 5% (Minibag+) 100 ML 100 ML @ 25 mls/hr IVPB Q8H MARYURI Rx#: [id number] Output: Urine 200 / 200 400 / 400 600 / 600 Other: Meal NPO dinner NPO breakfast Blood Glucose* 129 121 113 - Labs 07/25/16 03:30 07/25/16 03:30 Diabetes panel 07/25/16 Range/Units 03:30 Sodium 138 (136-145) mEq/L Potassium 3.3 L (3.5-4.5) mEq/L Chloride 102 (98-109) mEq/L Carbon Dioxide 30 H (19-29) mEq/L BUN 10 (7-20) mg/dL Creatinine 0.57 (0.57-1.11) mg/dL Glucose 119 H (70-99) mg/dL Calcium 8.3 L (8.6-10.8) mg/dL AST 17 (5-34) Units/L ALT 23 (0-55) Units/L Alkaline Phosphatase 67 (38-126) Units/L Albumin 2.2 L (3.5-5.0) g/dL Calcium panel 07/25/16 07/25/16 Range/Units 03:30 03:30 Calcium 8.3 L (8.6-10.8) mg/dL Phosphorus 2.6 (2.3-4.7) mg/dL Albumin 2.2 L (3.5-5.0) g/dL Pituitary panel 07/25/16 Range/Units 03:30 Sodium 138 (136-145) mEq/L Potassium 3.3 L (3.5-4.5) mEq/L Chloride 102 (98-109) mEq/L Carbon Dioxide 30 H (19-29) mEq/L BUN 10 (7-20) mg/dL Creatinine 0.57 (0.57-1.11) mg/dL Glucose 119 H (70-99) mg/dL Calcium 8.3 L (8.6-10.8) mg/dL Adrenal panel 07/25/16 Range/Units 03:30 Sodium 138 (136-145) mEq/L Potassium 3.3 L (3.5-4.5) mEq/L Chloride 102 (98-109) mEq/L Carbon Dioxide 30 H (19-29) mEq/L BUN 10 (7-20) mg/dL Creatinine 0.57 (0.57-1.11) mg/dL Glucose 119 H (70-99) mg/dL Calcium 8.3 L (8.6-10.8) mg/dL Total Bilirubin 0.3 (0.2-1.2) mg/dL AST 17 (5-34) Units/L ALT 23 (0-55) Units/L Alkaline Phosphatase 67 (38-126) Units/L Albumin 2.2 L (3.5-5.0) g/dL - VTE Documentation of Mechanical Device: Intermittent pneumatic compression device Consult Discharge Plan - Plan Referrals: Brenda Rosado CNP [Primary Care Provider] - 07/29/16 10:40 am Santiago Rodrigues MD [Non-Partnered Physician] -
[2016-07-25] MEDS: Ondansetron 4 MG/2 ML VIAL IVP PRN (14:33)
[2016-07-25] MEDS: Albuterol 2.5 MG/3 ML NEBULIZER IH SCH ×2 (16:08→22:16)
[2016-07-25] MEDS ORDERED: Clinimix E 5%-15% SOLUTION 2,000 ML with MVI, adult with vitamin K 10 ML IV SCH (17:00)
--- NOTE | 2016-07-25 17:06 | Internal Med Progress Note ---
Date of Encounter: 07/25/16 Time of Encounter: 17:04 - Assessment and plan (1) Sigmoid diverticulitis Current Visit: Yes Status: Acute Assessment and plan: being tretaed for perforated sigmoid diverticulitis. s/p exploratory celiotomy, sigmoid colectomy and incidental appendectomy with placement of the central venous line. POD #2 Clinically better today. antibiotics continued along with zofran and phenergan Blood culture preliminary shows no growth. will follow surgical recommendations. TPN continued, patient still nothing by mouth. Nutrition following Potassium and magnesium has been replaced. encourage incentive spirometer, DVT prophylaxis will continue to follow. (2) DVT prophylaxis Current Visit: Yes Status: Acute - Time Spent With Patient 25 - 35 minutes - Subjective Interval history: patinet admitted for acute diverticulitis,complicated by diverticular perforation, s/p surgery. POD #2 today, c/o mild post op pain, has not passed gas, no bowel movement. being followed by surgery. - Constitutional Vitals: Temp Pulse Resp BP Pulse Ox 99 F 82 16 137/80 95 07/25/16 11:04 07/25/16 11:04 07/25/16 11:04 07/25/16 11:04 07/25/16 11:04 General appearance: Present: A&O X 3, no acute distress Exam: Neck: No obvious neck swellings Lungs: Clear to auscultation Cardiac: Regular rate and rhythm. No significant murmurs Abdomen:feels soft, no bowel sounds heard, mild tenderness at the incision site , wound site looks clean. Genitourinary: No gutierrez catheter Neurological: Alert and oriented. No gross localizing deficits Psych: Not aggressive or agitated Extremities: no significant leg edema Skin: No generalized rash Internal Medicine: Result - Labs CBC & Chem 7: 07/25/16 03:30 07/25/16 03:30 Labs: Short CBC 07/25/16 Range/Units 03:30 WBC 11.2 H (4.3-11.1) K/mcL Hgb 9.6 L D (11.5-15.4) g/dL Hct 30.4 L (35.3-44.9) % Plt Count 359 (140-400) K/mcL Neutrophils # 8.0 (1.6-8.9) K/mcL BMP 07/25/16 03:30 Sodium 138 Potassium 3.3 L Chloride 102 Carbon Dioxide 30 H BUN 10 Creatinine 0.57 Glucose 119 H Calcium 8.3 L Liver Function 07/25/16 Range/Units 03:30 Total Bilirubin 0.3 (0.2-1.2) mg/dL AST 17 (5-34) Units/L ALT 23 (0-55) Units/L Alkaline Phosphatase 67 (38-126) Units/L Albumin 2.2 L (3.5-5.0) g/dL - ABG Interpretation ABG results: PT/INR, D-dimer PT 13.2 Seconds (9.4-12.1) H 07/20/16 13:23 - Impressions Impressions Chest X-Ray 07/23/16 12:04 IMPRESSION: Left central venous catheter tip projects over the course of the superior vena cava. No acute cardiopulmonary process. D/ / 07/23/2016 13:36:18 Rica Yanez MD / bcarter Interpreting Provider: Rica Yanez MD - VTE Documentation of Mechanical Device: Intermittent pneumatic compression device Consult Discharge Plan - Plan Referrals: Brenda Rosado CNP [Primary Care Provider] - 07/29/16 10:40 am Santiago Rodrigues MD [Non-Partnered Physician] -
[2016-07-26] MEDS: MetroNIDAZOLE 500 MG/100 ML 500 MG/100 ML BAG IVPB SCH ×4 (00:09→17:09)
[2016-07-26] MEDS: Piperacillin/Tazobactam 3.375 GM in D5% in Water (Mini-Bag+) 100 ML IVPB SCH ×3 (00:10→16:50)
[2016-07-26] MEDS: Insulin LISPRO 300 UNITS/3 ML VIAL SQ SCH ×4 (00:12→17:14)
[2016-07-26] MEDS: *HR* Morphine 2 MG/ML SYRINGE IVP PRN ×6 (02:05→20:09)
[2016-07-26] MEDS: 0.9 % Sodium Chloride 500 ML IVC SCH (03:40)
[2016-07-26 03:49] LABS: Basophils # 0.1 K/mcL (0.0-0.2); Basophils % 0.6 %; Eosinophils # 0.2 K/mcL (0.0-0.6); Hematocrit 29.5 % (35.3-44.9); Hemoglobin 9.3 g/dL (11.5-15.4); Lymphocytes # 1.7 K/mcL (0.6-4.6); Lymphocytes % 18.7 %; Mean Corpuscular HGB Conc 31.5 g/dL (31.6-35.5); Mean Corpuscular Hemoglobin 29.1 pg (28.0-33.3); Mean Corpuscular Volume 92.2 fL (83.0-100.0); Mean Platelet Volume 8.9 fL (9.4-12.4); Monocytes # 0.9 K/mcL (0.0-1.3); Monocytes % 10.3 %; Neutrophils # 5.7 K/mcL (1.6-8.9); Nucleated Red Blood Cells 0.2 /100 WBC (0); Platelet Count 377 K/mcL (140-400); Red Cell Distribution Width 12.9 % (11.5-14.5); Segmented Neutrophils % 64.4 %
[2016-07-26 04:03] LABS: BUN/Creatinine Ratio 14 (6-26); Blood Urea Nitrogen 8 mg/dL (7-20); Calcium 7.9 mg/dL (8.6-10.8); Carbon Dioxide 28 mEq/L (19-29); Chloride 102 mEq/L (98-109); Glucose 115 mg/dL (70-99); Osmolality,Calculated 285 (280-300); Potassium 3.4 mEq/L (3.5-4.5); Sodium 138 mEq/L (136-145); eGFR For African Americans > 60 (> 60); eGFR For Non-African Americans > 60 (> 60)
[2016-07-26] MEDS: Albuterol 2.5 MG/3 ML NEBULIZER IH SCH ×4 (04:15→22:49)
[2016-07-26] MEDS: *HR* Heparin 5,000 UNIT/ML VIAL SQ SCH ×2 (05:04→17:25)
[2016-07-26] MEDS: Pantoprazole 40 MG VIAL IVP SCH (08:12)
--- NOTE | 2016-07-26 10:13 | Internal Med Progress Note ---
<Vahid Lawson - Last Filed: 07/26/16 13:10> Date of Encounter: 07/26/16 Time of Encounter: 10:11 - Assessment and plan (1) Sigmoid diverticulitis Current Visit: Yes Status: Acute Assessment and plan: 50F admitted due to perforated sigmoid diverticulitis. s/p exploratory celiotomy, sigmoid colectomy and incidental appendectomy POD#3 Denies N/V BM or flatus ON TPN, flagyl, zosyn Continue zofran and phenergan for nausea Blood culture shows no growth. TPN continued and patient is tolerating clear liqids. encourage incentive spirometer, DVT prophylaxis repeat triglyceride level will follow surgical recommendations. (2) DVT prophylaxis Current Visit: Yes Status: Acute Assessment and plan: Continue heparin SQ - Subjective Interval history: Dawna had no acute events overnight. She says her abdominal pain is present at surgical site but controlled on morphine. She marco antonio CP,sob, nausea, and vomiting. Denies BM or flatus. She is able to tolerate clear liquid diet. Denies pain in lower extremities. Does say she had edema in hands and legs from getting fluids. - Constitutional Vitals: Temp Pulse Resp BP Pulse Ox 98.5 F 81 16 126/75 95 07/26/16 07:07 07/26/16 07:07 07/26/16 07:07 07/26/16 07:07 07/26/16 07:07 General appearance: Present: A&O X 3, no acute distress - Respiratory Respiratory exam: Present: CTAB. Absent: accessory muscle use, rales, rhonchi, wheezes - Cardiovascular Cardiovascular exam: Present: RRR, +S1, +S2. Absent: diastolic murmur, gallop, rubs, systolic murmur - GI/Abdominal GI/Abdominal exam: Present: normal bowel sounds, soft, tenderness (at surgical site. ), no peritoneal signs. Absent: distended - Extremities Exam Extremities exam: Present: warm, radial pulses palpable and symetrical. Absent : calf tenderness, cyanotic, pedal edema - Incison Incision: Present: clean and dry, intact Internal Medicine: Result - Labs CBC & Chem 7: 07/26/16 03:35 07/26/16 03:35 Labs: Short CBC 07/26/16 Range/Units 03:35 WBC 8.9 (4.3-11.1) K/mcL Hgb 9.3 L (11.5-15.4) g/dL Hct 29.5 L (35.3-44.9) % Plt Count 377 (140-400) K/mcL Neutrophils # 5.7 (1.6-8.9) K/mcL BMP 07/26/16 03:35 Sodium 138 Potassium 3.4 L Chloride 102 Carbon Dioxide 28 BUN 8 Creatinine 0.56 L Glucose 115 H Calcium 7.9 L - ABG Interpretation ABG results: PT/INR, D-dimer PT 13.2 Seconds (9.4-12.1) H 07/20/16 13:23 - VTE Documentation of Mechanical Device: Intermittent pneumatic compression device Consult Discharge Plan - Plan Referrals: Brenda Rosado CNP [Primary Care Provider] - 07/29/16 10:40 am Santiago Rodrigues MD [Non-Partnered Physician] - <Doe Myers T - Last Filed: 07/26/16 15:54> - Constitutional Vitals: Temp Pulse Resp BP Pulse Ox 98.9 F 81 16 128/75 94 L 07/26/16 15:14 07/26/16 15:14 07/26/16 15:14 07/26/16 15:14 07/26/16 15:14 Internal Medicine: Result - Labs CBC & Chem 7: 07/26/16 03:35 07/26/16 03:35 Labs: Short CBC 07/26/16 Range/Units 03:35 WBC 8.9 (4.3-11.1) K/mcL Hgb 9.3 L (11.5-15.4) g/dL Hct 29.5 L (35.3-44.9) % Plt Count 377 (140-400) K/mcL Neutrophils # 5.7 (1.6-8.9) K/mcL BMP 07/26/16 03:35 Sodium 138 Potassium 3.4 L Chloride 102 Carbon Dioxide 28 BUN 8 Creatinine 0.56 L Glucose 115 H Calcium 7.9 L - ABG Interpretation ABG results: PT/INR, D-dimer PT 13.2 Seconds (9.4-12.1) H 07/20/16 13:23 - Attending Attestation I examined this patient and my medical decision-making was reviewed with the PUBLIC SPEAKING COACH/PA/Advanced Practice Nurse/Resident Physician. I agree with the documented findings, disposition and treatment plan as described except to the extent set forth below. 56-year-old female postop day 3, status post exploratory celiotomy, sigmoid colectomy, incidental appendectomy secondary to perforated sigmoid diverticulitis. She is seen at bedside, denies new complains She is on TPN At time of review, she has been started on clear liquid by surgery Labs and Imaging are stable. Plan, continue current care, blood culture is negative, transition to po antibiotics when fully tolerating orally Plan to D/c CVC when TPN has been discontinued, in the meantime, check and monitor TG Appreciate surgery input
[2016-07-26] MEDS ORDERED: Acetaminophen 325 MG TABLET PO PRN (16:13)
--- NOTE | 2016-07-26 16:13 | General Surgery Progress Note ---
Date of Encounter: 07/26/16 Time of Encounter: 16:05 Subjective Patient reports: no new complaints, tolerating liquids well Narrative: Postoperative day 3: Patient feeling well, no nausea vomiting overnight. Initiated on clear liquids this morning - no nausea vomiting at this time however patient has noted some increased cramping abdominal pain. These symptoms are likely related to return of bowel function. Afebrile, 98.9; pulse 81, respirations 16, blood pressure 120/75. Lungs: Clear to auscultation, no obvious pain in deep inspiration Cardiac: Regular rate, no appreciable murmur Abdomen: Soft; bowel sounds. Midline incision clean, dry, and healing well. No flatus or BM yet Pathology: Still pending Urine output: 1800 mL 07/25/16; 1750 mL so far today. Laboratories: White count has normalized to 8.9; hemoglobin 9.3 with hematocrit 29.5 - the anemia persists due to IV fluids/hydration. Anemia is expected to improve once the IV fluids of been discontinued and the patient completes her diuresis. Platelet count 377,000 Sodium 138, potassium 3.4, chloride 102, BUN 8, creatinine 0.56 Accu-Cheks 127 - 131 Impression: Postoperative day 3: Acceptable status, tolerating clears. Awaiting pathology Recurrent hypokalemia - oral and IV supplementation ordered Anticipate weaning and discontinuing TPN once enteral diet initiated. Objective Vital Signs - Last 8 Hours Temp Pulse Resp BP Pulse Ox 07/26/16 15:14 98.9 F 81 16 128/75 94 L 07/26/16 11:12 98.3 F 81 16 126/76 94 L Intake and Output 07/26/16 07/26/16 07/26/16 07:59 15:59 23:59 Intake Total 2013 708 / 708 Output Total 300 / 300 1450 / 1450 Balance 1714 / 1714 -742 / -742 Intake: IV Fluids 2013 588 / 588 Clinimix E 5%-15% 764 / 764 388 / 388 SOLUTION 2,000 ML @ 83.3 mls/hr IV .Q24H [facility] with M.v.i. Adult 10 ml Rx#: [id number] Intralipid 20% 250 ML @ 250 / 250 21 mls/hr IVPB DAILY@1700 [facility] Rx#:[id number] Flagyl 500 MG/100 ML 500 200 / 200 100 / 100 mg In 100 ml @ 100 mls/hr IVPB Q6H [facility] Rx#: [id number] Zosyn 3.375 GM In 100 / 100 100 / 100 Dextrose 5% (Minibag+) 100 ML 100 ML @ 25 mls/hr IVPB Q8H [facility] Rx#: [id number] Oral 0 / 0 120 / 120 Output: Urine 300 / 300 1450 / 1450 Other: Meal NPO Lunch Percent of Meal Consumed 0% Blood Glucose* 131 127 - Labs 07/26/16 03:35 07/26/16 03:35 Diabetes panel 07/26/16 Range/Units 03:35 Sodium 138 (136-145) mEq/L Potassium 3.4 L (3.5-4.5) mEq/L Chloride 102 (98-109) mEq/L Carbon Dioxide 28 (19-29) mEq/L BUN 8 (7-20) mg/dL Creatinine 0.56 L (0.57-1.11) mg/dL Glucose 115 H (70-99) mg/dL Calcium 7.9 L (8.6-10.8) mg/dL Calcium panel 07/26/16 Range/Units 03:35 Calcium 7.9 L (8.6-10.8) mg/dL Pituitary panel 07/26/16 Range/Units 03:35 Sodium 138 (136-145) mEq/L Potassium 3.4 L (3.5-4.5) mEq/L Chloride 102 (98-109) mEq/L Carbon Dioxide 28 (19-29) mEq/L BUN 8 (7-20) mg/dL Creatinine 0.56 L (0.57-1.11) mg/dL Glucose 115 H (70-99) mg/dL Calcium 7.9 L (8.6-10.8) mg/dL Adrenal panel 07/26/16 Range/Units 03:35 Sodium 138 (136-145) mEq/L Potassium 3.4 L (3.5-4.5) mEq/L Chloride 102 (98-109) mEq/L Carbon Dioxide 28 (19-29) mEq/L BUN 8 (7-20) mg/dL Creatinine 0.56 L (0.57-1.11) mg/dL Glucose 115 H (70-99) mg/dL Calcium 7.9 L (8.6-10.8) mg/dL - VTE Documentation of Mechanical Device: Intermittent pneumatic compression device Consult Discharge Plan - Plan Referrals: Brenda Rosado CNP [Primary Care Provider] - 07/29/16 10:40 am Santiago Rodrigues MD [Non-Partnered Physician] -
[2016-07-26] MEDS ORDERED: Clinimix E 5%-15% SOLUTION 2,000 ML with MVI, adult with vitamin K 10 ML IV SCH (17:00)
[2016-07-27] MEDS: MetroNIDAZOLE 500 MG/100 ML 500 MG/100 ML BAG IVPB SCH ×4 (01:17→17:05)
[2016-07-27] MEDS: Piperacillin/Tazobactam 3.375 GM in D5% in Water (Mini-Bag+) 100 ML IVPB SCH ×3 (01:22→17:04)
[2016-07-27] MEDS: Insulin LISPRO 300 UNITS/3 ML VIAL SQ SCH ×3 (01:22→11:59)
[2016-07-27] MEDS: *HR* Morphine 2 MG/ML SYRINGE IVP PRN ×3 (01:24→09:15)
[2016-07-27] MEDS ORDERED: 0.9 % Sodium Chloride 500 ML ONE (01:30)
[2016-07-27] MEDS: Albuterol 2.5 MG/3 ML NEBULIZER IH SCH ×4 (03:50→21:46)
[2016-07-27 04:55] LABS: Basophils # 0.1 K/mcL (0.0-0.2); Basophils % 0.6 %; Eosinophils # 0.3 K/mcL (0.0-0.6); Hematocrit 29.6 % (35.3-44.9); Hemoglobin 9.5 g/dL (11.5-15.4); Immature Granulocytes % 4.2 % (0-4); Lymphocytes # 2.2 K/mcL (0.6-4.6); Lymphocytes % 20.8 %; Mean Corpuscular HGB Conc 32.1 g/dL (31.6-35.5); Mean Corpuscular Hemoglobin 29.7 pg (28.0-33.3); Mean Corpuscular Volume 92.5 fL (83.0-100.0); Mean Platelet Volume 8.9 fL (9.4-12.4); Monocytes # 0.8 K/mcL (0.0-1.3); Monocytes % 7.3 %; Neutrophils # 6.6 K/mcL (1.6-8.9); Nucleated Red Blood Cells 0.3 /100 WBC (0); Platelet Count 433 K/mcL (140-400); Red Cell Distribution Width 13.1 % (11.5-14.5); Segmented Neutrophils % 64.1 %
[2016-07-27 05:09] LABS: BUN/Creatinine Ratio 16 (6-26); Blood Urea Nitrogen 9 mg/dL (7-20); Calcium 7.9 mg/dL (8.6-10.8); Carbon Dioxide 26 mEq/L (19-29); Chloride 104 mEq/L (98-109); Glucose 148 mg/dL (70-99); Magnesium 1.7 mg/dL (1.6-2.6); Osmolality,Calculated 287 (280-300); Potassium 4.1 mEq/L (3.5-4.5); Sodium 138 mEq/L (136-145); Triglycerides 174 mg/dL (< 150); eGFR For African Americans > 60 (> 60); eGFR For Non-African Americans > 60 (> 60)
[2016-07-27] MEDS: *HR* Heparin 5,000 UNIT/ML VIAL SQ SCH ×2 (05:59→17:04)
[2016-07-27] MEDS: Pantoprazole 40 MG VIAL IVP SCH (09:15)
[2016-07-27] MEDS: 0.9 % Sodium Chloride 500 ML IVC SCH ×2 (09:17→20:50)
--- NOTE | 2016-07-27 09:56 | Internal Med Progress Note ---
<Vahid Lawson - Last Filed: 07/27/16 09:51> Date of Encounter: 07/27/16 Time of Encounter: 09:51 - Assessment and plan (1) Sigmoid diverticulitis Current Visit: Yes Status: Acute Assessment and plan: 50F admitted due to perforated sigmoid diverticulitis. s/p exploratory celiotomy, sigmoid colectomy and incidental appendectomy POD#3 Denies N/V and BM Says she is now passing flatus flagyl, zosyn Blood culture shows no growt Continue zofran and phenergan for nausea TPN continued and patient is tolerating clear liqids. Possible progression off TPN and advancement of diet depending on surgery recommendations. encourage incentive spirometer, DVT prophylaxis Triglyceride level 174. will follow surgical recommendations. (2) DVT prophylaxis Current Visit: Yes Status: Acute Assessment and plan: Continue heparin SQ - Subjective Interval history: Patient had no acute events overnight. She says her abdominal pain is present at surgical site but controlled on morphine. She denies CP,sob, nausea, and vomiting. Denies BM but is passing flatus. She is able to tolerate clear liquid diet. Denies pain in lower extremities. Does say she had edema in hands and legs from getting fluids. - Constitutional Vitals: Temp Pulse Resp BP Pulse Ox 98.3 F 83 14 142/83 97 07/27/16 06:56 07/27/16 06:56 07/27/16 06:56 07/27/16 06:56 07/27/16 06:56 General appearance: Present: A&O X 3, no acute distress - Head Head exam: Present: normocephalic - Eye Eye exam: Present: PERRL, conjuntiva pink, sclera anicteric - Neck Neck exam general surgery: Present: supple, trachea midline. Absent: lymphadenopathy - Respiratory Respiratory exam: Present: CTAB. Absent: accessory muscle use, rales, rhonchi, wheezes - Cardiovascular Cardiovascular exam: Present: RRR, +S1, +S2. Absent: diastolic murmur, gallop, rubs, systolic murmur - GI/Abdominal GI/Abdominal exam: Present: normal bowel sounds, soft, no peritoneal signs. Absent: distended, tenderness - Extremities Exam Extremities exam: Present: warm, radial pulses palpable and symetrical. Absent : calf tenderness, cyanotic, pedal edema - Incison Incision: Present: clean and dry, intact. Absent: purulent - Neurological Exam Neurological exam: Present: CN II-XII intact, oriented X3, no focal deficits. Absent: pronater drift, facial droop, speech deficit - Skin Skin exam: Present: dry, intact Internal Medicine: Result - Labs CBC & Chem 7: 07/27/16 04:15 07/27/16 04:15 Labs: Short CBC 07/27/16 Range/Units 04:15 WBC 10.4 (4.3-11.1) K/mcL Hgb 9.5 L (11.5-15.4) g/dL Hct 29.6 L (35.3-44.9) % Plt Count 433 H (140-400) K/mcL Neutrophils # 6.6 (1.6-8.9) K/mcL BMP 07/27/16 04:15 Sodium 138 Potassium 4.1 Chloride 104 Carbon Dioxide 26 BUN 9 Creatinine 0.56 L Glucose 148 H Calcium 7.9 L - ABG Interpretation ABG results: PT/INR, D-dimer PT 13.2 Seconds (9.4-12.1) H 07/20/16 13:23 - VTE Documentation of Mechanical Device: Intermittent pneumatic compression device Consult Discharge Plan - Plan Referrals: Brenda Rosado CNP [Primary Care Provider] - Santiago Rodrigues MD [Non-Partnered Physician] - <Doe Myers - Last Filed: 07/27/16 17:15> - Constitutional Vitals: Temp Pulse Resp BP Pulse Ox 97.9 F 87 16 133/83 97 07/27/16 14:35 07/27/16 14:35 07/27/16 14:35 07/27/16 14:35 07/27/16 14:35 Internal Medicine: Result - Labs CBC & Chem 7: 07/27/16 04:15 07/27/16 04:15 Labs: Short CBC 07/27/16 Range/Units 04:15 WBC 10.4 (4.3-11.1) K/mcL Hgb 9.5 L (11.5-15.4) g/dL Hct 29.6 L (35.3-44.9) % Plt Count 433 H (140-400) K/mcL Neutrophils # 6.6 (1.6-8.9) K/mcL BMP 07/27/16 04:15 Sodium 138 Potassium 4.1 Chloride 104 Carbon Dioxide 26 BUN 9 Creatinine 0.56 L Glucose 148 H Calcium 7.9 L - ABG Interpretation ABG results: PT/INR, D-dimer PT 13.2 Seconds (9.4-12.1) H 07/20/16 13:23 - Attending Attestation I examined this patient and my medical decision-making was reviewed with the BR[employer]/PA/Advanced Practice Nurse/Resident Physician. I agree with the documented findings, disposition and treatment plan as described except to the extent set forth below. 56-year-old female postop day 3, status post exploratory celiotomy, sigmoid colectomy, incidental appendectomy secondary to perforated sigmoid diverticulitis. She is seen at bedside, denies new complains She just had a BM at time of review TG slighlty elevated from prior Labs and Imaging are stable. Plan Advance diet, d/c TPN and CVC, Ambulate patient prn, Change antibiotics to po, anticipate d/c a.m
[2016-07-27] MEDS ORDERED: *HR* Morphine 2 MG/ML SYRINGE IVP PRN (14:37)
--- NOTE | 2016-07-27 14:54 | General Surgery Progress Note ---
Date of Encounter: 07/27/16 Time of Encounter: 14:42 Subjective Patient reports: no new complaints, feels better, tolerating liquids well, bowel movement Narrative: POD #4 - Patient feeling well though describes a "rough night" with inability to sleep. Tolerating clears, no nausea vomiting. Patient is passing flatus and had several bowel movements in the last 24 hours Afebrile, 97 6; pulse 73, respirations 16, blood pressure 120/71 Lungs: Clear to auscultation Abdomen: Soft, minimal incisional tenderness; incision clean and dry; active bowel sounds Urine output: 3150 mL, 07/26/2016; 1100 mL so far today Laboratories: White count 10.4, hemoglobin 9.5, hematocrit 29.6; platelets 33, 000 Electrolytes, BUN and creatinine within normal limits Pathology: Benign colon with diverticulosis; acute serositis with contained perforation The appendix demonstrated chronic active serositis - likely due to the adjacent pericolic inflammation and abscess rather than acute appendicitis Sessile polyp as described in the resected sigmoid colon - no further characterization provided. Impression/plan: Postoperative day 4: Status post sigmoid colectomy with stapled EEA colocolonic anastomosis and incidental appendectomy. Doing well. Hypokalemia - corrected Anemia - most likely due to billy operative fluids/TPN. Expected to correct as IV therapy stopped and patient diuresis progresses Bowel function has returned; enteral diet started and will be advanced as tolerated. Discontinue TPN - discussed with Dietary. Discontinue accuchecks and sliding scale insulin coverage. change IV medications to oral Sessile colon polyp - post op colonoscopy to examine the remainder of the colon once patient fully recovered from recent surgery. Objective Vital Signs - Last 8 Hours Temp Pulse Resp BP Pulse Ox 07/27/16 14:35 97.9 F 87 16 133/83 97 07/27/16 11:05 97.6 F 73 16 124/71 97 07/27/16 10:58 16 97 07/27/16 06:56 98.3 F 83 14 142/83 97 Intake and Output 07/26/16 07/27/16 07/27/16 23:59 07:59 15:59 Intake Total 400 / 400 200 / 200 220 / 220 Output Total 1400 / 1400 900 / 900 200 / 200 Balance -1000 / -1000 -700 / -700 20 / 20 Intake: IV Fluids 200 / 200 200 / 200 100 / 100 Flagyl 500 MG/100 ML 500 100 / 100 100 / 100 100 / 100 mg In 100 ml @ 100 mls/hr IVPB Q6H [facility] Rx#: [id number] Zosyn 3.375 GM In 100 / 100 100 / 100 Dextrose 5% (Minibag+) 100 ML 100 ML @ 25 mls/hr IVPB Q8H [facility] Rx#: [id number] Oral 200 / 200 120 / 120 Output: Urine 1400 / 1400 900 / 900 200 / 200 Other: Meal Dinner Breakfast Stool Size Small Stool Consistency liquid Stool Color Brown Blood Glucose* 91 133 113 - Labs 07/27/16 04:15 07/27/16 04:15 Diabetes panel 07/27/16 Range/Units 04:15 Sodium 138 (136-145) mEq/L Potassium 4.1 (3.5-4.5) mEq/L Chloride 104 (98-109) mEq/L Carbon Dioxide 26 (19-29) mEq/L BUN 9 (7-20) mg/dL Creatinine 0.56 L (0.57-1.11) mg/dL Glucose 148 H (70-99) mg/dL Calcium 7.9 L (8.6-10.8) mg/dL Triglycerides 174 H (< 150) mg/dL Calcium panel 07/27/16 Range/Units 04:15 Calcium 7.9 L (8.6-10.8) mg/dL Pituitary panel 07/27/16 Range/Units 04:15 Sodium 138 (136-145) mEq/L Potassium 4.1 (3.5-4.5) mEq/L Chloride 104 (98-109) mEq/L Carbon Dioxide 26 (19-29) mEq/L BUN 9 (7-20) mg/dL Creatinine 0.56 L (0.57-1.11) mg/dL Glucose 148 H (70-99) mg/dL Calcium 7.9 L (8.6-10.8) mg/dL Adrenal panel 07/27/16 Range/Units 04:15 Sodium 138 (136-145) mEq/L Potassium 4.1 (3.5-4.5) mEq/L Chloride 104 (98-109) mEq/L Carbon Dioxide 26 (19-29) mEq/L BUN 9 (7-20) mg/dL Creatinine 0.56 L (0.57-1.11) mg/dL Glucose 148 H (70-99) mg/dL Calcium 7.9 L (8.6-10.8) mg/dL - VTE Documentation of Mechanical Device: Intermittent pneumatic compression device Consult Discharge Plan - Plan Referrals: Brenda Rosado CNP [Primary Care Provider] - Santiago Rodrigues MD [Non-Partnered Physician] -
[2016-07-27] MEDS: *HR* HYDROcodone/Acet 5/325 mg TABLET PO PRN (20:48)
[2016-07-28] MEDS: Piperacillin/Tazobactam 3.375 GM in D5% in Water (Mini-Bag+) 100 ML IVPB SCH (00:04)
[2016-07-28] MEDS: *HR* HYDROcodone/Acet 5/325 mg TABLET PO PRN ×2 (00:53→11:53)
[2016-07-28] MEDS: Albuterol 2.5 MG/3 ML NEBULIZER IH SCH ×2 (03:40→10:56)
[2016-07-28 05:02] LABS: BUN/Creatinine Ratio 13 (6-26); Basophils # 0.1 K/mcL (0.0-0.2); Basophils % 0.5 %; Blood Urea Nitrogen 8 mg/dL (7-20); Calcium 8.4 mg/dL (8.6-10.8); Carbon Dioxide 26 mEq/L (19-29); Chloride 103 mEq/L (98-109); Eosinophils # 0.3 K/mcL (0.0-0.6); Eosinophils % 2.3 %; Glucose 84 mg/dL (70-99); Hematocrit 29.7 % (35.3-44.9); Hemoglobin 9.4 g/dL (11.5-15.4); Immature Granulocytes % 2.9 % (0-4); Lymphocytes # 2.8 K/mcL (0.6-4.6); Lymphocytes % 24.1 %; Mean Corpuscular HGB Conc 31.6 g/dL (31.6-35.5); Mean Corpuscular Hemoglobin 29.3 pg (28.0-33.3); Mean Corpuscular Volume 92.5 fL (83.0-100.0); Mean Platelet Volume 9.1 fL (9.4-12.4); Monocytes # 0.9 K/mcL (0.0-1.3); Monocytes % 7.6 %; Neutrophils # 7.1 K/mcL (1.6-8.9); Nucleated Red Blood Cells 0.3 /100 WBC (0); Osmolality,Calculated 282 (280-300); Platelet Count 455 K/mcL (140-400); Potassium 4.1 mEq/L (3.5-4.5); Red Blood Count 3.21 M/mcL (3.82-4.97); Red Cell Distribution Width 13.2 % (11.5-14.5); Segmented Neutrophils % 62.6 %; Sodium 137 mEq/L (136-145); eGFR For African Americans > 60 (> 60); eGFR For Non-African Americans > 60 (> 60)
[2016-07-28] MEDS: *HR* Heparin 5,000 UNIT/ML VIAL SQ SCH (05:27)
[2016-07-28 08:47] VITALS: BP 117/82
[2016-07-28] MEDS ORDERED: metroNIDAZOLE 500 MG TABLET PO SCH (09:00)
--- NOTE | 2016-07-28 10:04 | Discharge Summary ---
<Vahid Lawson - Last Filed: 07/28/16 10:26> Date of Encounter: 07/28/16 Time of Encounter: 10:00 - Discharge Diagnosis (1) Sigmoid diverticulitis Priority: Primary Status: Acute (2) DVT prophylaxis Priority: Secondary Status: Acute - Discharge Medications Prescriptions: HYDROcodone/Acet 5/325 mg [[place] 5-325 mg] 1 tab PO Q4HR PRN #20 tablet PRN Reason: pain not relieved by Tylenol Amoxicillin/Clavulanate [Augmentin] 875 mg PO BIDWM #8 tablet MetroNIDAZOLE [Flagyl] 500 mg PO TID #12 tablet Ondansetron HCl [Zofran] 4 mg PO Q6H #30 tablet Home Medications: Cetirizine HCl [Zyrtec] 10 mg PO DAILY 07/18/16 [History] Gabapentin [Neurontin] 300 mg PO HS 07/18/16 [History] Mv-Mn/FA/Vit K/Lycop/Lut/Coq10 [Daily Multivitamin Capsule] 1 each PO DAILY [History] Ranitidine HCl [Acid Driller Multiple Spindle] 75 mg PO DAILY 07/18/16 [History] Topiramate 50 mg PO HS 07/18/16 [History] Amoxicillin/Clavulanate [Augmentin] 875 mg PO BIDWM #8 tablet 07/28/16 [Rx] HYDROcodone/Acet 5/325 mg [[place] 5-325 mg] 1 tab PO Q4HR PRN #20 tablet [Rx] MetroNIDAZOLE [Flagyl] 500 mg PO TID #12 tablet 07/28/16 [Rx] Ondansetron HCl [Zofran] 4 mg PO Q6H #30 tablet 07/28/16 [Rx] Allergies/Adverse Reactions: Allergies Erythromycin Base Allergy (Verified 07/18/16 10:08) Hives Tetracyclines Allergy (Verified 07/18/16 10:08) Hives Date of admission: 07/17/16 23:28 Primary care physician: Brenda Rosado CNP Consults: 07/26/16 11:01 Consult to Nutrition [CONS] Routine Comment: verbal order from Dr. Rodrigues on 07/22 for TPN start Consulting Provider: NUTRITION Reason for Dietary Consult: TPN Start and Manage Discharging clinician: Vahid Lawson Anticipated date of discharge: 07/28/16 - Patient Status Disposition: Home, Self-Care Condition: Good Functional capacity at discharge: independent ambulation Overall status at discharge: patient is progressing back to baseline - Discharge Instructions Instructions: Diverticulitis (DC) Follow Up With: Santiago Rodrigues MD [Non-Partnered Physician] - 08/01/16 3:10 pm (Get appointment for monday) - Diet and Activity Activity: increase activity as tolerated Diet: advance to your usual diet, regular diet Hospital course: Ms. Crenshaw is a 56 year old female history of cholecystectomy presents with symptoms of sudden onset of right lower quadrant/suprapubic abdominal pain. The pain was severe and worse with movement. She did not have any associated nausea vomiting fevers chills. She denied hematochezia and melena. CT scan of the abdomen and pelvis showed acute diverticulitis involving the sigmoid colon without abscess. She was started on ertapenem. 2 days after admission patient' s abdominal pain continued to worsen. She started to have persistent vomiting and started on Zofran and Phenergan.. Repeat CT showed interval progression of acute sigmoid diverticulitis with perforation. Surgery was consulted and recommended patient to undergo sigmoid colectomy with end-to-end anastomosis. Patient was started on IV fluids and electrolyte replacement. Ertapenem was changed to Zosyn and metronidazole. [id number] patient underwent exploratory celiotomy, sigmoid colectomy with incidental appendectomy with colocolonic anastomosis. She also had placement of central venous line in the left subclavian vein. She was started on TPN, IV pain medication and remained nothing by mouth. Status post surgery patient's electrolytes were replaced, she continued to be on TPN for 3 additional days. Her incision remained clean and dry. Her bowel function returned on postoperative day 3. Her diet was advanced as tolerated and TPN was discontinued. IV Zosyn and Flagyl were transitioned to by mouth Flagyl and by mouth Augmentin. Today patient is able to ambulate independently, tolerating Alexis regular diet, has multiple bowel movements and passing gas, has good urine production, electrolyte abnormalities are resolved, and pain is under control. She is ready to be discharged today. Patient may shower as needed. She is not to lift objects heavier than 5 pounds. She will follow up with surgery on [place]. Patient will be discharged with 4 days of Augmentin and Flagyl and [place] for pain control. She can continue a regular diet. If patient has severe onset of abdominal pain, fever, nausea, vomiting, diarrhea, leg swelling, severe shortness of breath, chest pain she is to return to the ER immediately. - Time Spent with Patient Total time spent providing and/or coordinating discharge services: - Constitutional Vitals: Temp Pulse Resp BP Pulse Ox 98.5 F 81 18 117/82 97 07/28/16 08:44 07/28/16 08:44 07/28/16 08:44 07/28/16 08:44 07/28/16 08:44 General appearance: Present: A&O X 3, no acute distress - Head Head exam: Present: atraumatic, normocephalic - Eye Eye exam: Present: PERRL, conjuntiva pink, sclera anicteric - Neck Neck exam general surgery: Present: supple, trachea midline. Absent: lymphadenopathy - Respiratory Respiratory exam: Present: CTAB. Absent: accessory muscle use, rales, rhonchi, wheezes - Cardiovascular Cardiovascular exam: Present: RRR, +S1, +S2. Absent: diastolic murmur, gallop, rubs, systolic murmur - GI/Abdominal GI/Abdominal exam: Present: normal bowel sounds, soft, no peritoneal signs. Absent: distended, tenderness - Extremities Exam Extremities exam: Present: warm, radial pulses palpable and symetrical. Absent : calf tenderness, cyanotic, pedal edema - Incison Incision: Present: clean and dry, intact. Absent: erythema - Neurological Exam Neurological exam: Present: CN II-XII intact, oriented X3, no focal deficits. Absent: pronater drift, facial droop, speech deficit - Skin Skin exam: Present: dry, intact - VTE Documentation of Mechanical Device: Intermittent pneumatic compression device <Doe Myers - Last Filed: 07/28/16 14:27> Date of admission: 07/17/16 23:28 Primary care physician: Brenda Rosado CNP Consults: 07/26/16 11:01 Consult to Nutrition [CONS] Routine Comment: verbal order from Dr. Rodrigues on 07/22 for TPN start Consulting Provider: NUTRITION Reason for Dietary Consult: TPN Start and Manage Hospital course: Ms. Crenshaw is a 56 year old female - Time Spent with Patient Total time spent providing and/or coordinating discharge services: - Constitutional Vitals: Temp Pulse Resp BP Pulse Ox 98.5 F 81 18 117/82 98 07/28/16 08:44 07/28/16 08:44 07/28/16 10:56 07/28/16 08:44 07/28/16 10:56 - Attending Attestation I examined this patient and my medical decision-making was reviewed with the [employer]/PA/Advanced Practice Nurse/Resident Physician. I agree with the documented findings, disposition and treatment plan as described except to the extent set forth below. 56-year-old female postop day 4, status post exploratory celiotomy, sigmoid colectomy, incidental appendectomy secondary to perforated sigmoid diverticulitis. She is seen at bedside, denies new complains Tolerating po, ambulatory, stable for discharge Physical exam ISQ Discharge home on 4 more days of Augmentin and flagyl, follow up with surgery and PCP
== END 2016-07-28 12:30 | disposition home or self-care (01) | DRG 330 ==
LOC: 3ANU 18:41 → EMEROO 18:41 → 3ANU 22:37 → SUATTDRO 23:28
PROVIDERS: ADMIT Pediatrics; ATTEND Internal Medicine
PROC: GENLINE (2016-07-23 08:00)